=== PATIENT | male | born 1975 | race Caucasian/White ===

== ENCOUNTER 2018-12-11 23:11 | Inpatient (IN) ==
[2018-12-11] MEDS ORDERED: Sod Chloride 0.9% Inj 1,000 ML IV.SIG ONE (23:39)
[2018-12-11] MEDS ORDERED: Morphine Inj 4 MG/ML Vial IV.PUSH ONE (23:39)
--- NOTE | 2018-12-11 23:43 | ED ---
HPI General Chief Complaint: Abdominal Pain Stated Complaint: abd pain Time Seen by Provider: 12/11/18 23:39 Source: patient and EMS Mode of arrival: EMS Limitations: no limitations History of Present Illness HPI narrative: 43-year-old male patient with history of lap band surgery, hernia surgery, presents to the ER today for 3 days history of epigastric abdominal pain which she rates currently an 8 out of 10. He has been nauseous and vomiting. He denies any fevers, diarrhea, or any other symptoms. He states that any movement makes the pain worse. Modifying Factors: None Associated Signs & Symptoms: Epigastric abdominal pain Risk Factors: Lap band surgery, hernia surgeries Related Data Allergies Allergy/AdvReac Type Severity Reaction Status Date / Time No Known Allergies Allergy Verified 12/11/18 23:37 Review of Systems ROS: all other systems reviewed are negative PMFSH History History Provided By: Patient Medical History Medical History History of asthma (Acute) Hx of sleep apnea (Acute) Surgical History Surgical History History of hernia surgery (Acute) LAP-BAND surgery status (Acute) Social History Social History Substance History: No History of Abuse Second Hand Smoke Exposure: No Smoking Status: Never smoker Tobacco Type: Cigarettes How Often Do You Have a Drink Containing Alcohol: Monthly or less Recent Travel in [facility] within the Last 8 Weeks: No Recent Out of Country Travel within the Last 8 Weeks: No Exam Narrative Exam Narrative: GENERAL: Well-developed male H male patient currently in moderate distress. Awake and oriented x3. SKIN: Focused skin assessment warm/dry. HEAD: Atraumatic. Normocephalic. EYES: Pupils equal and round. No scleral icterus. No injection or drainage. ENT: No nasal bleeding or discharge. Mucous membranes pink and moist. NECK: Trachea midline. No JVD. CARDIOVASCULAR: Regular rate and rhythm. No murmur appreciated. RESPIRATORY: No accessory muscle use. Clear to auscultation. Breath sounds equal bilaterally. GASTROINTESTINAL: Abdomen soft,Epigastric tenderness without guarding or rebound , and more diffuse abdominal tenderness throughout, nondistended. Hepatic and splenic margins not palpable. MUSCULOSKELETAL: No obvious deformities. No clubbing. No cyanosis. No edema. NEUROLOGICAL: Awake and alert. No obvious cranial nerve deficits. Motor grossly within normal limits. Normal speech. PSYCHIATRIC: Appropriate mood and affect; insight and judgment normal. Course Initial Documented Vital Signs Temperature 98.1 F 12/11/18 23:25 Pulse Rate 78 12/11/18 23:25 Respiratory Rate 18 12/11/18 23:25 Blood Pressure 134/70 12/11/18 23:25 Pulse Oximetry 99 12/11/18 23:25 Last Documented Vital Signs Temperature 98.1 F 12/11/18 23:25 Pulse Rate 92 H 12/12/18 01:30 Respiratory Rate 20 12/12/18 01:30 Blood Pressure 142/74 H 12/12/18 01:30 Pulse Oximetry 99 12/12/18 01:30 Medical Decision Making MDM Narrative Medical decision making narrative: Patient has significant dehydration, white count is elevated, LFTs are up, and his lipase is very elevated concerning for pancreatitis. CAT scan is showing signs of ductal dilatation as well as acute pancreatitis, gallstones seen, concerning for a possible retained gallstone and gallstone pancreatitis. Patient had been given IV fluids, nausea medications, pain medications in the ER. At this point, plan would be to admit the patient for further treatment. Case is discussed with PA for Dr. Sandoval for admission. Medical Screen Exam Complete: Yes Emergency Medical Condition: Yes Differential Diagnosis Differential Diagnosis: LAP-BAND malplacement versus gastritis versus gastroenteritis versus pancreatitis versus other acute intra-abdominal processes Lab Data Lab results reviewed: Yes I reviewed the patient's lab results. Result diagrams: 12/11/18 23:50 12/11/18 23:50 Lab Results 12/11/18 12/11/18 Range/Units 23:50 23:50 CBC w Diff Auto diff final WBC 15.3 H (4.0-11.0) th/mm3 RBC 6.41 H (4.50-5.90) mil/mm3 Hgb 17.6 H (13.0-17.0) gm/dL Hct 53.4 H (39.0-51.0) % MCV 83.3 (80.0-100.0) fL MCH 27.5 (27.0-34.0) pg MCHC 33.0 (32.0-36.0) % RDW 14.7 (11.6-17.2) % Plt Count 211 (150-450) th/mm3 MPV 10.8 (7.0-11.0) fL Neut % (Auto) 89.3 H (16.0-70.0) % Lymph % (Auto) 4.7 L (9.0-44.0) % Winston % (Auto) 4.2 (0.0-8.0) % Eos % (Auto) 0.0 (0.0-4.0) % Baso % (Auto) 1.8 (0.0-2.0) % Neut # (Auto) 13.7 H (1.8-7.7) th/mm3 Lymph # (Auto) 0.7 L (1.0-4.8) th/mm3 Winston # (Auto) 0.6 (0.0-0.9) th/mm3 Eos # (Auto) 0.0 (0.0-0.4) th/mm3 Baso # (Auto) 0.3 H (0.0-0.2) th/mm3 WBC Differential . Differential Comment . Sodium 140 (136-145) meq/L Potassium 3.7 (3.5-5.1) meq/L Chloride 104 (98-107) meq/L Carbon Dioxide 24.2 (21.0-32.0) meq/L Anion Gap 12 (5-15) meq/L BUN 13 (7-18) mg/dL Creatinine 1.50 H (0.60-1.30) mg/dL Estimated GFR 51 L (>89) mL/min Random Glucose 201 H (74-106) mg/dL Calcium 9.9 (8.5-10.1) mg/dL Magnesium 2.2 (1.5-2.5) mg/dL Total Bilirubin 4.6 H (0.2-1.0) mg/dL AST 194 H (15-37) U/L ALT 528 H (12-78) U/L Alkaline Phosphatase 293 H (45-117) U/L Total Protein 8.9 H (6.4-8.2) g/dL Albumin 4.4 (3.4-5.0) g/dL Lipase 00653 H (73-393) U/L Imaging Data Attestation: I personally reviewed and interpreted this imaging study as follows : Radiologist's impression: Abdomen/Pelvis CT 12/12/18 00:42 CONCLUSION: 1. Gallstones. 2. Mild intra and extra hepatic biliary ductal dilatation 3. Acute pancreatitis Discharge Plan Discharge Disposition Patient Disposition: ED Admit(ED Internal Use Only) Discharge Condition Condition: Stable Discharge Order Discharge Orders: ED Use Only Admit Order (Routine); Ordered 12/12/18 Ordered By: Brandon Silveira Discharge Details Anticipated Discharge Date: 12/12/18 Diagnosis: Pancreatitis Physicians Team ED Provider: Brandon Silveira Primary Care Provider: Josh Graham Discharge Interventions Interventions: Vital Signs Last Done: 12/12/18 01:30 Status ED Status: With Doctor
[2018-12-12 00:12] LABS: Baso # (Auto) 0.3 th/mm3 (0.0-0.2); Baso % (Auto) 1.8 % (0.0-2.0); Hematocrit 53.4 % (39.0-51.0); Hemoglobin 17.6 gm/dL (13.0-17.0); Lymph # (Auto) 0.7 th/mm3 (1.0-4.8); Lymph % (Auto) 4.7 % (9.0-44.0); Mean Corpuscular Hemoglobin 27.5 pg (27.0-34.0); Mean Corpuscular Volume 83.3 fL (80.0-100.0); Mean Platelet Volume 10.8 fL (7.0-11.0); Mono # (Auto) 0.6 th/mm3 (0.0-0.9); Mono % (Auto) 4.2 % (0.0-8.0); Neut # (Auto) 13.7 th/mm3 (1.8-7.7); Neut % (Auto) 89.3 % (16.0-70.0); Platelet Count 211 th/mm3 (150-450); Red Blood Count 6.41 mil/mm3 (4.50-5.90); Red Cell Distribution Width 14.7 % (11.6-17.2); White Blood Count 15.3 th/mm3 (4.0-11.0)
[2018-12-12 00:13] LABS: Chloride 104 meq/L (98-107); Potassium 3.7 meq/L (3.5-5.1); Sodium 140 meq/L (136-145)
[2018-12-12 00:18] LABS: Albumin 4.4 g/dL (3.4-5.0); Anion Gap 12 meq/L (5-15); Blood Urea Nitrogen 13 mg/dL (7-18); Calcium 9.9 mg/dL (8.5-10.1); Carbon Dioxide 24.2 meq/L (21.0-32.0); Glucose,Random 201 mg/dL (74-106); Magnesium 2.2 mg/dL (1.5-2.5)
[2018-12-12 00:19] LABS: Alanine Aminotransferase 528 U/L (12-78)
[2018-12-12 00:20] LABS: Aspartate Aminotransferase 194 U/L (15-37); Glomerular Filtration Rate 51 mL/min (>89)
[2018-12-12 00:21] LABS: Total Protein 8.9 g/dL (6.4-8.2)
[2018-12-12 00:22] LABS: Alkaline Phosphatase 293 U/L (45-117); Lipase 18356 U/L (73-393)
--- NOTE | 2018-12-12 01:06 | CT ---
EXAM DATE: 12/12/2018 12:49 AM EST AGE/SEX: 43 years / Male INDICATIONS: Abdominal pain. CLINICAL DATA: This is the patient's initial encounter. Patient reports that signs and symptoms have been present for 1 day and indicates a pain score of 9/10. MEDICAL/SURGICAL HISTORY: . Asthma. Sleep apnea. . Hernia repair. Lap-band. ORAL CONTRAST: No oral contrast ingested. RADIATION DOSE: 22.98 CTDI (mGy) COMPARISON: No prior exams available for comparison. TECHNIQUE: Multiple contiguous axial images were obtained through the abdomen and pelvis following b olus infusion of 96 ml Omnipaque 350 (iohexol) nonionic water-soluble contrast as a single exam dos e. No oral contrast ingested. Using automated exposure control and adjustment of the mA and/or kV ac cording to patient size, radiation dose was kept as low as reasonably achievable to obtain optimal di agnostic quality images. DICOM format image data is available electronically for review and comparis on. FINDINGS: Lower Lungs: The visualized lower lungs are clear. Liver: There is mild intra and extra hepatic biliary ductal dilatation with common duct diameter appr oaching 12 mm. There is no evidence of focal liver mass. There are stones present within a contracted gallbladder. Spleen: Homogeneous density without enlargement. Pancreas: Moderate peripancreatic inflammatory change consistent with acute pancreatitis. Inflammato ry changes extend inferiorly into the upper pelvis within the right anterior pararenal space. Kidneys: Normal in size and shape. No evidence of mass or hydronephrosis. Adrenal Glands: Unremarkable. Aorta: The aorta and proximal iliac vessels are grossly unremarkable without aneurysmal dilation. Bowel/Mesentery: Lap band implement is present. The bowel loops are grossly unremarkable. The cecum a nd sigmoid colon have a normal configuration. Abdominal Wall: Intact. Retroperitoneum: No evidence of adenopathy in the retrocrural, para-aortic, or deep pelvic regions. Circumaortic renal vein noted. Bladder: Contours are smooth. Reproductive Organs: No abnormal masses or calcifications seen. Inguinal: The inguinal region is unremarkable without evidence of adenopathy. Bony Structures: Unremarkable. CONCLUSION: 1. Gallstones. 2. Mild intra and extra hepatic biliary ductal dilatation 3. Acute pancreatitis Electronically signed by: Julio Benson MD Board Certified Radiologist 12/12/2018 1:05 AM EST
[2018-12-12] MEDS ORDERED: Acetaminophen 325 MG Tablet PO PRN (01:42)
[2018-12-12] MEDS ORDERED: Sod Chloride 0.9% Inj 1,000 ML IV.SIG SCH (01:45)
[2018-12-12] MEDS: Morphine Inj 4 MG/ML Vial IV.PUSH PRN ×2 (01:52→07:50)
[2018-12-12] MEDS: Sod Chloride 0.9% Inj 1,000 ML IV.CONT SCH ×2 (03:11→12:48)
[2018-12-12 05:18] LABS: Bilirubin,Urine Moderate (Negative); Clarity,Urine Clear (Clear); Glucose,Urine (UA) 100 mg/dL (Negative); Leukocyte Esterase,Urine Negative (Negative); Nitrite,Urine Negative (Negative)
[2018-12-12 05:31] LABS: Color,Urine Amber (Yellw/Straw); Ictotest,Urine Positive (Negative)
[2018-12-12 05:32] LABS: RBC,Urine 0-3 /hpf (0-3); Squamous Epithelial Cell,Urine 0-5 /hpf (0-5); WBC,Urine 0-5 /hpf (0-5)
[2018-12-12 09:01] LABS: Baso # (Auto) 0.7 th/mm3 (0.0-0.2); Baso % (Auto) 3.7 % (0.0-2.0); Hematocrit 49.1 % (39.0-51.0); Hemoglobin 16.6 gm/dL (13.0-17.0); Lymph # (Auto) 0.7 th/mm3 (1.0-4.8); Lymph % (Auto) 3.8 % (9.0-44.0); Mean Corpuscular HGB Conc 33.9 % (32.0-36.0); Mean Corpuscular Hemoglobin 28.4 pg (27.0-34.0); Mean Corpuscular Volume 83.8 fL (80.0-100.0); Mean Platelet Volume 10.3 fL (7.0-11.0); Mono # (Auto) 0.8 th/mm3 (0.0-0.9); Mono % (Auto) 4.4 % (0.0-8.0); Neut # (Auto) 16.9 th/mm3 (1.8-7.7); Neut % (Auto) 88.1 % (16.0-70.0); Platelet Count 193 th/mm3 (150-450); Red Blood Count 5.86 mil/mm3 (4.50-5.90); Red Cell Distribution Width 15.1 % (11.6-17.2); White Blood Count 19.1 th/mm3 (4.0-11.0)
[2018-12-12 09:11] LABS: Chloride 109 meq/L (98-107); Potassium 3.9 meq/L (3.5-5.1); Sodium 142 meq/L (136-145)
[2018-12-12 09:40] LABS: Alanine Aminotransferase 462 U/L (12-78); Albumin 3.6 g/dL (3.4-5.0); Alkaline Phosphatase 245 U/L (45-117); Anion Gap 7 meq/L (5-15); Aspartate Aminotransferase 217 U/L (15-37); Blood Urea Nitrogen 13 mg/dL (7-18); Calcium 8.5 mg/dL (8.5-10.1); Carbon Dioxide 26.5 meq/L (21.0-32.0); Glomerular Filtration Rate 55 mL/min (>89); Glucose,Random 165 mg/dL (74-106); Total Protein 7.6 g/dL (6.4-8.2)
[2018-12-12 09:51] LABS: Lipase 11094 U/L (73-393)
[2018-12-12] MEDS ORDERED: HYDROmorphone PF Inj 0.5 MG/0.5 ML Syringe IV.PUSH PRN (09:53)
[2018-12-12] MEDS: HYDROmorphone PF Inj 2 MG/ML Vial IV.PUSH PRN ×3 (10:11→20:35)
--- NOTE | 2018-12-12 11:51 | MR ---
EXAM DATE: 12/12/2018 11:39 AM EST AGE/SEX: 43 years / Male INDICATIONS: Abdominal pain. CLINICAL DATA: This is the patient's subsequent encounter. Patient reports that signs and symptoms h ave been present for 2 days and indicates a pain score of 3/10. MEDICAL/SURGICAL HISTORY: Asthma. . Hernia, lap band COMPARISON: [facility], CT ABDOMEN & PELVIS W CONTRAST, 12/12/2018. . TECHNIQUE: Multiplanar, multisequence images of the abdomen were obtained without contrast including dedicated cholangiographic images. FINDINGS: Liver: The liver is homogeneous and normal in signal intensity with no focal defects. Intrahepatic Bile Ducts: There is mild dilation of the intrahepatic biliary ducts. Common Bile Duct: The common bile duct is enlarged measuring 12 mm in size. The common bile duct fol lowed all the way to the ampulla without evidence of filling defect. Gallbladder: Absent signal within the lumen of the fundus of the gallbladder correlates with areas o f calcification seen on CT suggesting multiple gallstones. The cystic duct is identified and has a no rmal spiral appearance without filling defects. Pancreas: The pancreatic duct is normal in size of the liver down to the ampulla. CONCLUSION: 1. Large gallstones. 2. Moderate dilation of the common bile duct and mild dilation of the intrahepatic biliary system wi thout intraluminal filling defects. 3. Mild amount of ascites adjacent to the tail of the pancreas and about the spleen 4. May consider performing hepatobiliary tract scan to evaluate patency of the cystic duct and to ev aluate for evidence of functional biliary obstruction.. Electronically signed by: Daryl Gregorio MD Board Certified Radiologist 12/12/2018 11:50 AM EST
--- NOTE | 2018-12-12 11:59 | P.HPIM ---
History of Present Illness Primary Care Physician: Johs Graham MD Chief Complaint: Abdominal pain History of Present Illness: 43-year-old male with history of asthma, sleep apnea who presented to hospital for evaluation of abdominal pain. Patient states that he has been experiencing abdominal pain for at least 2 weeks now. He indicates that it was a mild pain throughout his abdomen which over the last 2 days has progressively gotten worse to where it got up to 8/10 on a pain scale. Patient indicates that the pain was worse at work which she related to stress. As the pain was getting worse he came home from work yesterday and when she got home he had onset of nausea and vomiting. He states that he only vomited up liquids because over the last 24 hours he had only been drinking fluids. Last solid meal was on Tuesday. Patient denies any hematemesis, diarrhea, constipation, hematochezia. Patient denies any alcohol use, previous history of pancreatitis. Patient had workup done and found to have significant hyperbilirubinemia, liver enzyme elevation, pancreatic enzyme elevation. It was recommended by ER physician the patient be admitted for gallstone pancreatitis. Inpatient Certification Inpatient Certification: I certify that the inpatient services were ordered in accordance with Medicare regulations governing the order. This includes certification that hospital inpatient services are reasonable and necessary and in the case of services not specified as inpatient-only under 42 CFR 419.22(n), that they are appropriately provided as inpatient services in accordance to with the 2-midnight benchmark under 43 CFR 412.3(e) Estimated Total Length of Stay (Days): 2 Plans for Post Hospital Care: Home Review of Systems Review of Systems: all other systems reviewed are negative Gastrointestinal: Reports abdominal pain, Reports nausea and Reports vomiting [facility] Medical History Medical History History of asthma (Acute) Hx of sleep apnea (Acute) Surgical History Surgical History History of hernia surgery (Acute) LAP-BAND surgery status (Acute) Family History Family History Father History of prostate cancer Social History Social History Substance History: No History of Abuse Second Hand Smoke Exposure: No Smoking Status: Never smoker Tobacco Type: Cigarettes How Often Do You Have a Drink Containing Alcohol: 2 to 4 times a month Recent Travel in [facility] within the Last 8 Weeks: No Recent Out of Country Travel within the Last 8 Weeks: No Immunization History Tetanus Immunization: >5 Years Hx Influenza Vaccine This Season: No Medications and Allergies Allergies Allergy/AdvReac Type Severity Reaction Status Date / Time No Known Allergies Allergy Verified 12/11/18 23:37 Active Medications: Active Medications Acetaminophen (Tylenol) 650 mg PO Q4H PRN PRN Reason: Temp > 100.4 Hydromorphone HCl (Dilaudid Pf Inj) 1 mg IV.PUSH Q4H PRN PRN Reason: Pain 7 to 10 Last Admin: 12/12/18 10:11 Dose: 1 mg Hydromorphone HCl (Dilaudid Pf Inj) 0.5 mg IV.PUSH Q4H PRN PRN Reason: Pain 3 to 6 Sodium Chloride (Ns Inj) 1,000 mls @ 100 mls/hr IV.CONT .Q10H LEANA Last Admin: 12/12/18 03:11 Dose: 100 mls/hr Ondansetron HCl (Zofran Inj) 4 mg IV.PUSH Q6H PRN PRN Reason: NAUSEA OR VOMITING Last Admin: 12/12/18 03:10 Dose: 4 mg Sodium Chloride (Ns Flush) 2 ml IV.FLUSH BID LEANA Sodium Chloride (Ns Flush) 2 ml IV.FLUSH PRN PRN PRN Reason: FLUSH AFTER USING IV ACCESS Physical Exam Vital signs: Vital Signs 12/11/18 23:25 12/12/18 00:30 12/12/18 01:30 Temperature 98.1 F Pulse Rate 78 92 H Respiratory Rate 18 18 20 Blood Pressure 134/70 142/74 H Pulse Oximetry 99 99 12/12/18 02:15 12/12/18 03:49 12/12/18 07:52 Temperature 98.1 F Pulse Rate 76 Respiratory Rate 16 18 18 Blood Pressure 137/74 Pulse Oximetry 93 L 12/12/18 08:00 12/12/18 08:19 Temperature 97.9 F Pulse Rate 79 79 Respiratory Rate 20 Blood Pressure 122/82 Pulse Oximetry 95 Intake & Output 12/11/18 12/12/18 12/12/18 18:59 06:59 18:59 Intake Total 1999 Balance 1999 Weight 117.8 kg Intake: IV 1999 NS Inj 1,000 ML @ 1000 mls/hr 1999 IV.SIG BOLUS LEANA Rx#:[id number] Other: # Voids 1 Date of Last Bowel Movement 12/11/18 Weight On Admission 118 kg Narrative: GENERAL: Well-developed, well-nourished, in no acute distress. alert and orientated HEENT: Head is normocephalic without any lesions or masses noted. Facial features are symmetric. Eyes: Pupils equal round reactive to light. Extraocular muscles are intact. Conjunctivae were clear. Oropharyngeal: Pharynx without any erythema edema. Tongue is midline without deviation. Buccal mucosa is moist without any masses or lesions NECK: Supple without any masses. Trachea midline no deviation. No JVD, no bruits are appreciated CARDIAC: Regular rhythm, regular rate. S1/S2 are heard. No murmurs gallops or rubs. LUNGS: Clear to auscultation bilaterally. No wheeze, rhonchi or rales. No use of accessory muscles on inspiration or expiration. ABDOMEN: Soft, diffuse abdominal tenderness. Patient does have a positive Medrano sign. However he also elicits same response when doing the left side of his abdomen. Nondistended. Bowel sounds heard in all 4 quadrants. No organomegaly or masses. Negative rebound, negative guarding EXTREMITIES: No edema, pulses are equal bilaterally. No cyanosis or clubbing NEUROLOGY: Mood and affect appear appropriate. Cranial nerves II through XII grossly intact. Muscle strength 5/5 in upper and lower extremities bilaterally. Deep tendon reflexes are 2+ in upper and lower extremities bilaterally. Results Labs CBC & Chem 7: 12/12/18 08:48 12/12/18 08:48 Imaging Impressions Cholangiopancreatography MRI 12/12/18 00:00 CONCLUSION: 1. Large gallstones. 2. Moderate dilation of the common bile duct and mild dilation of the intrahepatic biliary system without intraluminal filling defects. 3. Mild amount of ascites adjacent to the tail of the pancreas and about the spleen 4. May consider performing hepatobiliary tract scan to evaluate patency of the cystic duct and to evaluate for evidence of functional biliary obstruction.. Abdomen/Pelvis CT 12/12/18 00:42 CONCLUSION: 1. Gallstones. 2. Mild intra and extra hepatic biliary ductal dilatation 3. Acute pancreatitis Caprini VTE Risk Assessment Caprini VTE Risk Assessment: No/Low Risk (score <= 1) Caprini Risk Assessment Model: Point Value = 1 Point Value = 2 Point Value = 3 Point Value = 5 Age 41-60 Minor surgery BMI > 25 kg/m2 Swollen legs Varicose veins or History of unexplained or recurrent spontaneous Oral contraceptives or hormone replacement Sepsis (< 1 month) Serious lung disease, including pneumonia (< 1 month) Abnormal pulmonary function Acute myocardial infarction Congestive heart failure (< 1 month) History of inflammatory bowel disease Medical patient at bed rest Age 61-74 Arthroscopic surgery Major open surgery (> 45 min) Laparoscopic surgery (> 45 min) Malignancy Confined to bed (> 72 hours) Immobilizing plaster cast Central venous access Age >= 75 History of VTE Family history of VTE Factor V Leiden Prothrombin [id number] Lupus anticoagulant Anticardiolipin antibodies Elevated serum homocysteine Heparin-induced thrombocytopenia Other congenital or acquired thrombophilia Stroke (< 1 month) Elective arthroplasty Hip, pelvis, or leg fracture Acute spinal cord injury (< 1 month) Prophylaxis Regimen: Total Risk Factor Score Risk Level Prophylaxis Regimen 0-1 Low Early ambulation 2 Moderate Order ONE of the following: *Sequential Compression Device (SCD) *Heparin 5000 units SQ BID 3-4 Higher Order ONE of the following medications: *Heparin 5000 units SQ TID *Enoxaparin/Lovenox 40 mg SQ daily (WT < 150 kg, CrCl > 30 mL/min) *Enoxaparin/Lovenox 30 mg SQ daily (WT < 150 kg, CrCl > 10-29 mL/min) *Enoxaparin/Lovenox 30 mg SQ BID (WT < 150 kg, CrCl > 30 mL/min) AND/OR *Sequential Compression Device (SCD) 5 or more Highest Order ONE of the following medications: *Heparin 5000 units SQ TID (Preferred with Epidurals) *Enoxaparin/Lovenox 40 mg SQ daily (WT < 150 kg, CrCl > 30 mL/min) *Enoxaparin/Lovenox 30 mg SQ daily (WT < 150 kg, CrCl > 10-29 mL/min) *Enoxaparin/Lovenox 30 mg SQ BID (WT < 150 kg, CrCl > 30 mL/min) AND *Sequential Compression Device (SCD) Assessment and Plan Plan Sepsis Patient met criteria on admission with leukocytosis, tachycardia, pancreatitis Obtain blood cultures Leukocytosis appears to be worsening, possible reactive versus infective Start Zosyn Abdominal pain with abnormal findings of elevated liver enzymes, hyperbilirubinemia, elevated pancreatic enzyme CT of the abdomen indicating gallstones, mild intrahepatic ductal dilatation, acute pancreatitis MRCP and indicating large gallstones, Moderate dilation of the common bile duct and mild dilation of the intrahepatic biliary system without intraluminal filling defects., mild amount of ascites adjacent to the tail of the pancreas and about the spleen, may consider performing hepatobiliary tract scan to evaluate patency of the cystic duct and to evaluate for evidence of functional biliary obstruction. Obtain HIDA scan Maintain n.p.o. status Continue pain control Continue IV fluid Continue monitor liver enzymes Obtain triglyceride level Acute kidney injury Likely secondary to not eating and drinking, dehydration, nausea vomiting Continue IV fluids Monitor renal function Hyperglycemia Obtain hemoglobin A1c DVT prevention Sequential compression devices, early ambulation Avoid chemical prophylaxis secondary to possible impending procedure Discussed Condition With: Patient, nursing staff, Dr. Lockett H&P: Quality VTE Deep Vein Thrombosis/Pulmonary Embolism Present on Admission: No
[2018-12-12] MEDS ORDERED: SODIUM CHLOR 0.9% IV.SIG ONE ×2 (12:00→18:25)
[2018-12-12] MEDS ORDERED: SINCALIDE IV.SIG ONE ×2 (12:00→18:25)
[2018-12-12] MEDS: Piperacil/Tazo 3.375 GM Premix 3.375 GM/50 ML PIGGYBACK IV.SIG SCH ×2 (16:25→20:34)
--- NOTE | 2018-12-12 16:29 | NM ---
EXAM DATE: 12/12/2018 4:23 PM EST AGE/SEX: 43 years / Male INDICATIONS: Abdominal pain with nausea for two weeks. CLINICAL DATA: This is the patient's initial encounter. Patient reports that signs and symptoms have been present for 2 weeks and indicates a pain score of 8/10. MEDICAL/SURGICAL HISTORY: Asthma. Inguinal hernia repair. COMPARISON: [facility], CT ABDOMEN & PELVIS W CONTRAST, 12/12/2018. . No external comparison. DOSE: 4.3 mCi Tc-99m mebrofenin i.v. TECHNIQUE: Following the intravenous administration of radiotracer, dynamic sequential images were pe rformed with continuous acquisition. Time-activity curves were generated. FINDINGS: Hepatic Kinetics: There is slightly delayed parenchymal uptake in the liver with clearance of blood pool at 20 minutes (normal is less than 5 minutes) the amount of activity in the hepatic parenchyma s tays relatively stable for the remainder of the 2 hours. Biliary Clearance: No significant excretion of activity into the small bowel or extrahepatic biliary system. Gallbladder: Not visualized, since there is no extrahepatic excretion of radiotracer, the study is no ndiagnostic for evaluation of the gallbladder. CONCLUSION: 1. Delayed uptake and no significant excretion of radiotracer from the hepatic parenchyma has differ ential considerations of either severe hepatocellular dysfunction or biliary obstruction. There is di lation of the intra and extrahepatic biliary system on CT and MRCP, making biliary obstruction more l ikely. 2. Cystic duct patency cannot be assessed due to the lack of excretion of radiotracer. Electronically signed by: Daryl Gregorio MD Board Certified Radiologist 12/12/2018 4:28 PM EST
[2018-12-12 16:39] LABS: Hemoglobin A1c 5.3 % (4.3-6.0)
--- NOTE | 2018-12-12 19:20 | MB ---
cc: Nancy Rhodes MD DATE: 12/12/2018 REFERRING PHYSICIAN: DOMENICO Peter PRIMARY CARE PHYSICIAN: Josh Graham MD REASON FOR CONSULTATION: Abdominal pain, pancreatitis, elevated liver enzymes. HISTORY OF PRESENT ILLNESS: Mr. Wilcox is a 43-year-old gentleman with multiple medical problems who came to the emergency room with complaints of abdominal pain going on for approximately 2 weeks. The patient stated the pain got worse for the last 2 days and was mostly in the upper abdomen. He denies any melena, hematemesis or hematochezia. He also vomited up some liquids over the last 24 hours when trying to drink liquids. The patient denies any previous history of pancreatitis, gallstones or any other GI pathology. He had a Lap-Band done more than 10 years ago up in [place]. He is unaware of the amount of fluid that was placed in the band. He denies any alcohol use. PAST MEDICAL HISTORY: Asthma, sleep apnea, obesity. PAST SURGICAL HISTORY: Lap-Band, hernia surgery. FAMILY HISTORY: Prostate cancer. No family history of colon cancer or any other GI pathology. SOCIAL HISTORY: Denies any drug use. Drinks alcohol 2-4 times a month. Smokes cigarettes. ALLERGIES: NO KNOWN ALLERGIES. MEDICATIONS: 1. Acetaminophen. 2. Dilaudid. 3. Zofran. REVIEW OF SYSTEMS: CONSTITUTIONAL: He denies any fever, chills, weight loss or weight gain. ENT: No alteration of baseline hearing or visual activity. PULMONARY: Denies any chest pain or shortness of breath. GASTROINTESTINAL: As above. GENITOURINARY: Denies dysuria or hematuria. HEMATOLOGIC: No history of anemia or bleeding disorder. SKIN: No alteration of baseline skin lesion. NEUROLOGIC: No history of TIA or CVA kind of symptoms. PHYSICAL EXAMINATION: GENERAL: The patient is sitting comfortably in bed, in no acute distress. VITAL SIGNS: Temperature 99, blood pressure 133/83. HEENT: PERRLA. Mild jaundice. NECK: Without JVD. No lymphadenopathy. CHEST: Clear to auscultation and palpation. CARDIOVASCULAR: S1, S2. No murmur. ABDOMEN: Obese. Subcutaneous device in the epigastrium. CENTRAL NERVOUS SYSTEM: Awake, alert, oriented x 3. No focal signs identified. EXTREMITIES: No pedal edema. LABORATORY DATA: Suggestive of a white count of 15.3, hemoglobin 17.6, platelets 211. Currently, white count is 19.1, hemoglobin 16.6, platelets 193. His chemistries are suggestive of a BUN of 13; creatinine 1.4; glucose 165; total bilirubin 4.6, currently 7; AST 194, currently 217; ALT 428, currently 462; alkaline phosphatase 293, currently 245. Lipase 18,356, currently 11,093. The patient also has had multiple imaging since his admission. He had a CT abdomen and pelvis which showed gallstones, mild intra and extrahepatic biliary ductal dilatation, acute pancreatitis. Also, the patient had a HIDA scan which showed delayed uptake, no significant excretion of radiotracer from hepatic parenchyma. Differential consideration would be severe hepatocellular dysfunction or biliary obstruction. There is dilatation of the intra and extrahepatic biliary system. Cystic duct patency cannot be assessed due to lack of excretion of the radiotracer. A delayed HIDA scan is scheduled for tomorrow morning. The patient also had an MRCP which showed large gallstones, moderate dilatation of the common bile duct, mild dilatation of the intrahepatic biliary system without intraluminal filling defects, mild amount of ascites. May consider performing hepatobiliary scan. IMPRESSION: Mr. Wilcox is a very pleasant 43-year-old gentleman admitted to the hospital with pancreatitis, most likely secondary to gallstones. Magnetic resonance cholangiopancreatography is negative for any biliary pathology at this time. Gallstones are the possible etiology of his pancreatitis. Elevated liver enzymes, bilirubin increasing, possible passed gallstone, possible increased liver enzymes due to pancreatitis, Status post Lap-Band. RECOMMENDATIONS: Clear liquid diet. Monitor LFTs closely. Direct and indirect bilirubin. Transfer to the [facility] for possible ERCP, EUS, consultation with bariatric surgery. The patient may need deflation of his Lap-Band prior to any endoscopic procedure. Also, he may need a cholecystectomy. Supportive care. Risks and benefits of ERCP and EUS discussed with the patient. IV antibiotics. Further recommendations will depend on the patient's clinical status and the above results. Discussed with the medical team and the patient. MD RUPERT Garcia/catrachito , 06:20 PM , 06:37 PM MATTHIEU
[2018-12-13] MEDS: HYDROmorphone PF Inj 2 MG/ML Vial IV.PUSH PRN ×5 (00:55→23:10)
[2018-12-13] MEDS: Sod Chloride 0.9% Inj 1,000 ML IV.CONT SCH ×3 (00:56→20:18)
[2018-12-13] MEDS: Piperacil/Tazo 3.375 GM Premix 3.375 GM/50 ML PIGGYBACK IV.SIG SCH ×4 (02:22→22:07)
[2018-12-13 06:49] LABS: Chloride 105 meq/L (98-107); Potassium 3.6 meq/L (3.5-5.1); Sodium 139 meq/L (136-145)
[2018-12-13 06:53] LABS: Baso % (Auto) 0.1 % (0.0-2.0); Eos % (Auto) 0.1 % (0.0-4.0); Hematocrit 52.8 % (39.0-51.0); Hemoglobin 17.6 gm/dL (13.0-17.0); Lymph # (Auto) 1.2 th/mm3 (1.0-4.8); Mean Corpuscular HGB Conc 33.2 % (32.0-36.0); Mean Corpuscular Hemoglobin 28.2 pg (27.0-34.0); Mean Corpuscular Volume 84.7 fL (80.0-100.0); Mean Platelet Volume 11.4 fL (7.0-11.0); Mono # (Auto) 0.9 th/mm3 (0.0-0.9); Mono % (Auto) 3.8 % (0.0-8.0); Neut # (Auto) 21.6 th/mm3 (1.8-7.7); Platelet Count 214 th/mm3 (150-450); Red Blood Count 6.23 mil/mm3 (4.50-5.90); Red Cell Distribution Width 15.6 % (11.6-17.2); White Blood Count 23.7 th/mm3 (4.0-11.0)
[2018-12-13 06:56] LABS: Calcium 8.1 mg/dL (8.5-10.1)
[2018-12-13 06:57] LABS: Albumin 3.1 g/dL (3.4-5.0); Anion Gap 8 meq/L (5-15); Blood Urea Nitrogen 17 mg/dL (7-18); Carbon Dioxide 25.6 meq/L (21.0-32.0); Glucose,Random 131 mg/dL (74-106)
[2018-12-13 07:00] LABS: Alanine Aminotransferase 366 U/L (12-78); Aspartate Aminotransferase 131 U/L (15-37); Glomerular Filtration Rate 55 mL/min (>89)
[2018-12-13 07:11] LABS: Alkaline Phosphatase 235 U/L (45-117); Lipase 3070 U/L (73-393); Total Protein 7.2 g/dL (6.4-8.2)
--- NOTE | 2018-12-13 07:44 | P.PNIM ---
Subjective Interval history: 43-year-old male who is seen examined today for follow-up on gallstone pancreatitis. Patient states that there is been no significant change in his condition. Still having abdominal discomfort. Plans for patient be transferred to the main for further intervention. Vital signs are stable. Patient remains afebrile. Physical Exam Vital signs: Vital Signs 12/12/18 07:52 12/12/18 08:00 12/12/18 08:19 Temperature 97.9 F Pulse Rate 79 79 Respiratory Rate 18 20 Blood Pressure 122/82 Pulse Oximetry 95 12/12/18 10:41 12/12/18 12:00 12/12/18 16:00 Temperature 99 F 98 F Pulse Rate 78 92 H Respiratory Rate 18 20 20 Blood Pressure 136/83 123/83 Pulse Oximetry 94 L 93 L 12/12/18 16:54 12/12/18 20:00 12/12/18 20:03 Temperature 96.8 F L Pulse Rate 91 H 90 Respiratory Rate 18 20 Blood Pressure 131/81 Pulse Oximetry 92 L 12/13/18 00:00 12/13/18 00:07 12/13/18 04:00 Temperature 96.5 F L 97.2 F L Pulse Rate 86 94 H 99 H Respiratory Rate 20 20 Blood Pressure 137/83 133/95 H Pulse Oximetry 94 L 92 L 12/13/18 04:09 12/13/18 07:32 Temperature 98.6 F Pulse Rate 99 H Respiratory Rate 20 Blood Pressure 148/91 H Pulse Oximetry 92 L Intake & Output 12/12/18 12/13/18 12/13/18 18:59 06:59 18:59 Intake Total 1100 / 1100 1100 / 1100 Balance 1100 / 1100 1100 / 1100 Weight 119.8 kg Intake: IV 1100 / 1100 1100 / 1100 NS Inj 1,000 ML @ 100 mls/hr IV 1000 / 1000 1000 / 1000 .CONT .Q10H LEANA Rx#:[id number] Zosyn 3.375 GM Premix 3.375 gm 100 / 100 100 / 100 In 50 ml @ 100 mls/hr IV.SIG Q6H LEANA Rx#:[id number] Oral 0 / 0 Other: # Voids 2 4 Date of Last Bowel Movement 12/11/18 # Bowel Movements 0 Narrative: GENERAL: Well-developed, well-nourished, in no acute distress. alert and orientated HEENT: Head is normocephalic without any lesions or masses noted. Facial features are symmetric. Eyes: Extraocular muscles are intact. Conjunctivae were clear. NECK: Supple without any masses. Trachea midline no deviation. No JVD, CARDIAC: Regular rhythm, regular rate. S1/S2 are heard. No murmurs gallops or rubs. LUNGS: Clear to auscultation bilaterally. No wheeze, rhonchi or rales. No use of accessory muscles on inspiration or expiration. ABDOMEN: Soft, mild diffuse tenderness noted throughout. Nondistended. Bowel sounds heard in all 4 quadrants. No organomegaly or masses. Negative rebound, negative guarding EXTREMITIES: No edema, pulses are equal bilaterally. No cyanosis or clubbing NEUROLOGY: Mood and affect appear appropriate. Cranial nerves II through XII grossly intact. Moving all extremities, speech is clear Results Labs CBC & Chem 7: 12/13/18 05:16 12/13/18 05:16 Imaging Imaging: Impressions Cholangiopancreatography MRI 12/12/18 00:00 CONCLUSION: 1. Large gallstones. 2. Moderate dilation of the common bile duct and mild dilation of the intrahepatic biliary system without intraluminal filling defects. 3. Mild amount of ascites adjacent to the tail of the pancreas and about the spleen 4. May consider performing hepatobiliary tract scan to evaluate patency of the cystic duct and to evaluate for evidence of functional biliary obstruction.. Hepatobiliary Scan Nuclear Medicine 12/12/18 00:00 CONCLUSION: 1. Delayed uptake and no significant excretion of radiotracer from the hepatic parenchyma has differential considerations of either severe hepatocellular dysfunction or biliary obstruction. There is dilation of the intra and extrahepatic biliary system on CT and MRCP, making biliary obstruction more likely. 2. Cystic duct patency cannot be assessed due to the lack of excretion of radiotracer. Assessment and Plan Plan Sepsis Patient met criteria on admission with leukocytosis, tachycardia, pancreatitis Blood cultures are pending Leukocytosis appears to be worsening, possible reactive versus infective Continue Zosyn Abdominal pain with abnormal findings of elevated liver enzymes, hyperbilirubinemia, elevated pancreatic enzyme CT of the abdomen indicating gallstones, mild intrahepatic ductal dilatation, acute pancreatitis MRCP and indicating large gallstones, Moderate dilation of the common bile duct and mild dilation of the intrahepatic biliary system without intraluminal filling defects., mild amount of ascites adjacent to the tail of the pancreas and about the spleen, may consider performing hepatobiliary tract scan to evaluate patency of the cystic duct and to evaluate for evidence of functional biliary obstruction. Awaiting final results of HIDA scan Maintain n.p.o. status Continue pain control Continue IV fluid Liver enzymes are trending down nicely Triglyceride level was 92 Yarn Mercerizer Operator Helper evaluated patient and recommend the patient be transferred to the main hospital for procedure Acute kidney injury Likely secondary to not eating and drinking, dehydration, nausea vomiting Continue IV fluids Monitor renal function Hyperglycemia Hemoglobin A1c 5.3 DVT prevention Sequential compression devices, early ambulation Avoid chemical prophylaxis secondary to possible impending procedure Progress Note: Quality VTE Deep Vein Thrombosis/Pulmonary Embolism Present on Admission: No
[2018-12-13 08:32] LABS: Activated Partial Thrombo Time 27.5 sec (23.4-31.7); INR 1.2 Ratio; Prothrombin Time 11.9 sec (9.8-11.6)
--- NOTE | 2018-12-13 10:40 | P.CONGS ---
[facility] Gen Surgery Consult Note Consult date: 12/13/18 Reason for consult: gallstones Requesting physician: Nancy Rhodes Narrative: This is a 43-year-old male with a past medical history of asthma, sleep apnea and a LAP-BAND procedure completed about 11 years ago. The patient came to the Emergency Room Tuesday evening with complaints of abdominal pain. He reports the pain has been going on for about 2 weeks but has intensified. The patient reports associated nausea and vomiting. The patient does reports some mild chills. A CT abdomen/pelvis was obtained which shows gallstones and a mild intra-and extrahepatic ductal dilatation with findings of acute pancreatitis. An MRCP was done which shows large gallstones with moderate dilatation of the common bile duct and mild dilatation of the intrahepatic biliary system. A HIDA scan shows delayed uptake and no signs of excretion of the radiotracer although cystic duct patency cannot be assessed at that time. His white blood cell count has been elevated. His liver enzymes have been elevated. He was admitted to [facility] and evaluated by Dr. Rhodes with GI. The patient was transferred to [facility] for ERCP this morning. A General Surgery consultation has been requested. Review of Systems All other systems reviewed negative except as stated in [facility] PMFSH - History History Provided By: Patient - Medical History Medical History: Medical History (Last Reviewed 12/13/18 @ 10:44 by ARIES Chapman) History of asthma Hx of sleep apnea - Surgical History Surgical History: Surgical History (Last Reviewed 12/15/18 @ 10:02 by ARIES Chapman) History of laparoscopy Status post orchiopexy LAP-BAND surgery status - Family History Family History: Family History Father History of prostate cancer - Tobacco History Second Hand Smoke Exposure: No Tobacco Use In Past 30 Days: No Smoking Status: Never smoker - Alcohol History How Often Do You Have a Drink Containing Alcohol: 2 to 4 times a month - Substance Use History Substance History: No History of Abuse - Travel History Recent Travel in the [place] Within the Last 8 Weeks: No Recent Travel Out of the Country Within the Last 8 Weeks: No - Immunization History Tetanus Immunization: >5 Years Hx Influenza Vaccine This Season: No Medications and Allergies Allergies Allergy/AdvReac Type Severity Reaction Status Date / Time No Known Allergies Allergy Verified 12/11/18 23:37 Home Medications Medication Instructions Recorded Confirmed Type albuterol sulfate 2 puff INHALATION Q6H PRN 12/13/18 12/13/18 History Active Medications: Active Medications Acetaminophen (Tylenol) 650 mg PO Q4H PRN PRN Reason: Temp > 100.4 Hydromorphone HCl (Dilaudid Pf Inj) 1 mg IV.PUSH Q3H PRN PRN Reason: Pain 1-10 Sodium Chloride (Ns Inj) 1,000 mls @ 100 mls/hr IV.CONT .Q10H [facility] Last Admin: 12/13/18 10:17 Dose: 100 mls/hr Piperacillin/Tazobactam/Dextrose (Zosyn 3.375 Gm Premix) 3.375 gm in 50 mls @ 100 mls/hr IV.SIG Q6H [facility] Last Infusion: 12/13/18 08:37 Dose: Infused Ondansetron HCl (Zofran Inj) 4 mg IV.PUSH Q6H PRN PRN Reason: NAUSEA OR VOMITING Last Admin: 12/13/18 04:39 Dose: 4 mg Sodium Chloride (Ns Flush) 2 ml IV.FLUSH BID [facility] Last Admin: 12/13/18 09:00 Dose: Not Given Sodium Chloride (Ns Flush) 2 ml IV.FLUSH PRN PRN PRN Reason: FLUSH AFTER USING IV ACCESS Exam Vital signs: Vital Signs 12/12/18 10:41 12/12/18 12:00 12/12/18 16:00 Temperature 99 F 98 F Pulse Rate 78 92 H Respiratory Rate 18 20 20 Blood Pressure 136/83 123/83 Pulse Oximetry 94 L 93 L 12/12/18 16:54 12/12/18 20:00 12/12/18 20:03 Temperature 96.8 F L Pulse Rate 91 H 90 Respiratory Rate 18 20 Blood Pressure 131/81 Pulse Oximetry 92 L 12/13/18 00:00 12/13/18 00:07 12/13/18 04:00 Temperature 96.5 F L 97.2 F L Pulse Rate 86 94 H 99 H Respiratory Rate 20 20 Blood Pressure 137/83 133/95 H Pulse Oximetry 94 L 92 L 12/13/18 04:09 12/13/18 07:32 Temperature 98.6 F Pulse Rate 99 H Respiratory Rate 20 Blood Pressure 148/91 H Pulse Oximetry 92 L Intake & Output 12/12/18 12/13/18 12/13/18 18:59 06:59 18:59 Intake Total 1100 / 1100 1100 / 1100 800 / 800 Balance 1100 / 1100 1100 / 1100 800 / 800 Weight 119.8 kg Intake: IV 1100 / 1100 1100 / 1100 800 / 800 NS Inj 1,000 ML @ 100 mls/hr IV 1000 / 1000 1000 / 1000 750 / 750 .CONT .Q10H [facility] Rx#:[id number] Zosyn 3.375 GM Premix 3.375 gm 100 / 100 100 / 100 50 / 50 In 50 ml @ 100 mls/hr IV.SIG Q6H [facility] Rx#:[id number] Oral 0 / 0 Other: # Voids 2 4 1 Date of Last Bowel Movement 12/11/18 # Bowel Movements 0 Narrative: GENERAL: Alert awake 43 year old male ambulating in the room. SKIN: Warm and dry. HEAD: Atraumatic. Normocephalic. EYES: Pupils equal and round. No scleral icterus. No injection or drainage. ENT: No nasal bleeding or discharge. Mucous membranes pink and moist. NECK: Trachea midline. CARDIOVASCULAR: Regular rate and rhythm. RESPIRATORY: No accessory muscle use. Clear to auscultation. Breath sounds equal bilaterally. GASTROINTESTINAL: Abdomen obese; distended. Tender throughout to palpation. Well healed incisions from LapBand surgery--- Lapband port is palpable in the epigastric region. MUSCULOSKELETAL: Extremities without clubbing, cyanosis, or edema. No obvious deformities. NEUROLOGICAL: Awake and alert. No obvious cranial nerve deficits. Motor grossly within normal limits. Five out of 5 muscle strength in the arms and legs. Normal speech. PSYCHIATRIC: Appropriate mood and affect; insight and judgment normal. Results - Labs 12/15/18 13:27 12/15/18 13:27 Laboratory Results CBC w Diff Auto diff final 12/13/18 05:16 WBC 23.7 th/mm3 (4.0-11.0) H 12/13/18 05:16 RBC 6.23 mil/mm3 (4.50-5.90) H 12/13/18 05:16 Hgb 17.6 gm/dL (13.0-17.0) H 12/13/18 05:16 Hct 52.8 % (39.0-51.0) H 12/13/18 05:16 MCV 84.7 fL (80.0-100.0) 12/13/18 05:16 MCH 28.2 pg (27.0-34.0) 12/13/18 05:16 MCHC 33.2 % (32.0-36.0) 12/13/18 05:16 RDW 15.6 % (11.6-17.2) 12/13/18 05:16 Plt Count 214 th/mm3 (150-450) 12/13/18 05:16 MPV 11.4 fL (7.0-11.0) H 12/13/18 05:16 Neut % (Auto) 91.0 % (16.0-70.0) H 12/13/18 05:16 Lymph % (Auto) 5.0 % (9.0-44.0) L 12/13/18 05:16 [place] % (Auto) 3.8 % (0.0-8.0) 12/13/18 05:16 Eos % (Auto) 0.1 % (0.0-4.0) 12/13/18 05:16 Baso % (Auto) 0.1 % (0.0-2.0) 12/13/18 05:16 Neut # (Auto) 21.6 th/mm3 (1.8-7.7) H 12/13/18 05:16 Lymph # (Auto) 1.2 th/mm3 (1.0-4.8) 12/13/18 05:16 [place] # (Auto) 0.9 th/mm3 (0.0-0.9) 12/13/18 05:16 Eos # (Auto) 0.0 th/mm3 (0.0-0.4) 12/13/18 05:16 Baso # (Auto) 0.0 th/mm3 (0.0-0.2) 12/13/18 05:16 WBC Differential . 12/13/18 05:16 Differential Comment . 12/13/18 05:16 PT 11.9 sec (9.8-11.6) H 12/13/18 08:00 INR 1.2 Ratio 12/13/18 08:00 APTT 27.5 sec (23.4-31.7) 12/13/18 08:00 Sodium 139 meq/L (136-145) 12/13/18 05:16 Potassium 3.6 meq/L (3.5-5.1) 12/13/18 05:16 Chloride 105 meq/L (98-107) 12/13/18 05:16 Carbon Dioxide 25.6 meq/L (21.0-32.0) 12/13/18 05:16 Anion Gap 8 meq/L (5-15) 12/13/18 05:16 BUN 17 mg/dL (7-18) 12/13/18 05:16 Creatinine 1.40 mg/dL (0.60-1.30) H 12/13/18 05:16 Estimated GFR 55 mL/min (>89) L 12/13/18 05:16 Random Glucose 131 mg/dL (74-106) H 12/13/18 05:16 Hemoglobin A1c 5.3 % (4.3-6.0) 12/12/18 08:48 Calcium 8.1 mg/dL (8.5-10.1) L 12/13/18 05:16 Magnesium 2.2 mg/dL (1.5-2.5) 12/11/18 23:50 Total Bilirubin 3.3 mg/dL (0.2-1.0) H 12/13/18 05:16 Direct Bilirubin 5.5 mg/dL (0.0-0.2) H 12/12/18 08:48 AST 131 U/L (15-37) H 12/13/18 05:16 ALT 366 U/L (12-78) H 12/13/18 05:16 Alkaline Phosphatase 235 U/L (45-117) H 12/13/18 05:16 Total Protein 7.2 g/dL (6.4-8.2) 12/13/18 05:16 Albumin 3.1 g/dL (3.4-5.0) L 12/13/18 05:16 Triglycerides 92 mg/dL (42-150) 12/12/18 08:48 Lipase 3070 U/L (73-393) H 12/13/18 05:16 Urine Color Anjali (Yellw/Straw) H 12/12/18 05:00 Urine Clarity Clear (Clear) 12/12/18 05:00 Urine pH 5.0 (5.0-8.5) 12/12/18 05:00 Ur Specific [place] 1.010 (1.002-1.035) 12/12/18 05:00 Urine Protein 30 mg/dL (Neg-Trace) H 12/12/18 05:00 Urine Glucose (UA) 100 mg/dL (Negative) H 12/12/18 05:00 Urine Ketones 80 or greater mg/dL (Negative) H 12/12/18 05:00 Urine Occult Blood Trace (Negative) 12/12/18 05:00 Urine Nitrate Negative (Negative) 12/12/18 05:00 Urine Bilirubin Moderate (Negative) H 12/12/18 05:00 Urine Ictotest Positive (Negative) H 12/12/18 05:00 Urine Urobilinogen 2.0 mg/dL (Less than 2) H 12/12/18 05:00 Ur Leukocyte Esterase Negative (Negative) 12/12/18 05:00 Urine RBC 0-3 /hpf (0-3) 12/12/18 05:00 Urine WBC 0-5 /hpf (0-5) 12/12/18 05:00 Ur Squamous Epith Cells 0-5 /hpf (0-5) 12/12/18 05:00 Micro UA Comment Culture not ind 12/12/18 05:00 Ur Microscopic Review Microscopic reviewed 12/12/18 05:00 Urine Culture Comments Culture not ind 12/12/18 05:00 Impressions Cholangiopancreatography MRI 12/12/18 00:00 CONCLUSION: 1. Large gallstones. 2. Moderate dilation of the common bile duct and mild dilation of the intrahepatic biliary system without intraluminal filling defects. 3. Mild amount of ascites adjacent to the tail of the pancreas and about the spleen 4. May consider performing hepatobiliary tract scan to evaluate patency of the cystic duct and to evaluate for evidence of functional biliary obstruction.. Hepatobiliary Scan Nuclear Medicine 12/12/18 00:00 CONCLUSION: 1. Delayed uptake and no significant excretion of radiotracer from the hepatic parenchyma has differential considerations of either severe hepatocellular dysfunction or biliary obstruction. There is dilation of the intra and extrahepatic biliary system on CT and MRCP, making biliary obstruction more likely. 2. Cystic duct patency cannot be assessed due to the lack of excretion of radiotracer. Abdomen/Pelvis CT 12/12/18 00:42 CONCLUSION: 1. Gallstones. 2. Mild intra and extra hepatic biliary ductal dilatation 3. Acute pancreatitis - Imaging Imaging: ITS Impressions Cholangiopancreatography MRI 12/12/18 00:00 CONCLUSION: 1. Large gallstones. 2. Moderate dilation of the common bile duct and mild dilation of the intrahepatic biliary system without intraluminal filling defects. 3. Mild amount of ascites adjacent to the tail of the pancreas and about the spleen 4. May consider performing hepatobiliary tract scan to evaluate patency of the cystic duct and to evaluate for evidence of functional biliary obstruction.. Hepatobiliary Scan Nuclear Medicine 12/12/18 00:00 CONCLUSION: 1. Delayed uptake and no significant excretion of radiotracer from the hepatic parenchyma has differential considerations of either severe hepatocellular dysfunction or biliary obstruction. There is dilation of the intra and extrahepatic biliary system on CT and MRCP, making biliary obstruction more likely. 2. Cystic duct patency cannot be assessed due to the lack of excretion of radiotracer. Abdomen/Pelvis CT 12/12/18 00:42 CONCLUSION: 1. Gallstones. 2. Mild intra and extra hepatic biliary ductal dilatation 3. Acute pancreatitis HIDA scan: report reviewed CT scan - abdomen: image reviewed Additional studies: MRCP reviewed Assessment and Plan - Plan 43 year old male with GS pancreatitis -ERCP planned for today -NPO -Discussed with patient the role of laparoscopic cholecystectomy -Will follow up on ERCP results -Will need to monitor LFTs prior to lap kevin -Adjusted frequency of IV Dilaudid -Thank you for this consult We will continue to follow Discussed Condition With: Dr. Nigel Wilcox - Attending Attestation The exam, history, and the medical decision-making described in the above note were completed with the assistance of the mid-level provider. I reviewed and agree with the findings presented. I attest that I had a [id number] encounter with the patient on the same day, and personally performed and documented my assessment and findings in the medical record. Patient with gallstone pancreatitis, has a history of lap band Abdomen with epigastric pain, severe with palpation consistent with pancreatitis Long discussion with patient at bedside about management recommendations including cooling of pancreatitis prior to surgery With the plan for delayed cholecystectomy
[2018-12-13] MEDS ORDERED: Metoprolol Tartrate 25 MG Tablet PO ONE (12:42)
[2018-12-13] MEDS ORDERED: Chlorhexidine Gluconate 2% 1 Pack (2 Cloths) TOPICAL ONE (12:42)
[2018-12-13] MEDS ORDERED: Sodium Chlor 0.9% Inj 500 ML IV.SIG ONE (13:00)
[2018-12-13] MEDS ORDERED: Iohexol 350 MG/ML 50 ML Vial (for Rad Diag) ONE (13:54)
[2018-12-13] MEDS ORDERED: Phenylephrine/NS 1000 MCG/10ML Syringe IV.PUSH ONE (14:25)
[2018-12-13] MEDS ORDERED: Lidocaine PF 1% Inj 5 ML Syringe OTHER ONE (14:25)
[2018-12-13] MEDS ORDERED: Glycopyrrolate Inj 1 MG/5 ML Syringe IV.PUSH ONE (14:25)
[2018-12-13] MEDS ORDERED: Succinylcholine Inj 100 MG/5 ML Syringe IV.PUSH ONE (14:25)
[2018-12-13] MEDS ORDERED: Neostigmine Inj 5 MG/5 ML Syringe IV.PUSH ONE (14:25)
[2018-12-13] MEDS ORDERED: fentaNYL Citrate Inj 100 MCG/2 ML Ampul ONE (15:46)
[2018-12-14] MEDS: Piperacil/Tazo 3.375 GM Premix 3.375 GM/50 ML PIGGYBACK IV.SIG SCH ×4 (02:14→20:34)
[2018-12-14] MEDS: HYDROmorphone PF Inj 2 MG/ML Vial IV.PUSH PRN ×6 (02:14→18:38)
[2018-12-14] MEDS: Sod Chloride 0.9% Inj 1,000 ML IV.CONT SCH ×3 (03:58→23:52)
--- NOTE | 2018-12-14 04:17 | MB ---
cc: Ahsan Velasquez MD DATE: 12/14/2018 REASON FOR CONSULTATION: Morbid obesity, history of laparoscopic gastric banding. HISTORY OF PRESENT ILLNESS: The patient is a 43-year-old male who presented with several medical issues including BMI currently of 37 and present lap band in place. The patient came in with acute onset of abdominal pain. The patient noted the pain to be 8/10, currently 4/10. He had further workup including laboratory data showing acute pancreatitis with gallstone pancreatitis and is undergoing treatment for this. CT abdomen and pelvis confirmation of this and the patient noted to have large gallstones, for which general surgical consultation was done along with a gastroenterology consult and the patient is undergoing ERCP for possible common duct stone extraction. The patient is noted to have previous gastric band placed in [place] in 2007. He has noted he has done relatively well with gastric band losing over 100 pounds. He has not followed up with a bariatric surgeon recently. He notes that he has had this initial weight loss with some weight regain and states that he has not had any adjustments or fills recently with his gastric band. The patient further denies being on any vitamins at this time and states a relatively healthy, active lifestyle. CT reviewed by myself showing presence of lap band in place at approximately 45-degree angle. PAST MEDICAL HISTORY: Morbid obesity, asthma, sleep apnea. PAST SURGICAL HISTORY: Hernia surgery and lap band surgery 11 years ago in [place]. SOCIAL HISTORY: Denies smoking, ETOH or IVDA. ALLERGIES: NO KNOWN DRUG ALLERGIES. MEDICATIONS: See EMR. FAMILY HISTORY: Denies diabetes or hypertension. REVIEW OF SYSTEMS: HEENT: Denies eye pain, ear pain. NECK: Denies swelling or pain. LUNGS: Denies cough or wheeze. HEART: Denies palpitations or chest pain. ABDOMEN: Denies vomiting. Complained of nausea and abdominal pain. GENITOURINARY: Denies dysuria or hematuria. Denies polyuria or polydipsia. INTEGUMENT: Denies any mass or lesions. NEUROLOGIC: Denies numbness or tingling. PHYSICAL EXAM: GENERAL: The patient in no acute distress. VITAL SIGNS: Temperature 98.5, pulse 79, respirations 20, blood pressure 142/82, saturation 86%. HEENT: Pupils equal, round, reactive. NECK: Supple. Trachea midline. LUNGS: Clear to auscultation bilaterally. HEART: S1, S2. ABDOMEN: Soft, positive tenderness to palpation in the epigastric region. Palpable port noted to be in place, well-healed surgical scars. NEUROLOGIC: GCS of 15. 5/5 motor in all extremities. INTEGUMENT: No obvious masses or lesions. PSYCHIATRIC: Appropriate mood and appropriate insight. LABORATORY AND DIAGNOSTIC DATA: WBC 23, hemoglobin 17.6, hematocrit 52.8, platelets 214. INR is 1.2, PTT is 27.5. Sodium 139, potassium 3.6, BUN of 17, creatinine 1.4, glucose 131, AST 131, ALT is 366. Alkaline phosphatase is 235. Bilirubin currently 3.3, previous is 7.0. Lipase current is 3000, previous 18,000. Neck CT reviewed by myself showing acute pancreatitis, lap band in position, acute angle. ASSESSMENT: The patient is a 43-year-old male with history of lap band 8 years ago, presents with weight regain, nausea and abdominal pain, gallstone pancreatitis. PLAN: After full workup, the patient was noted to have above-noted issues. At this point, the patient has evidence of gallstone pancreatitis. Deferred to general surgical evaluation and gastroenterology for ERCP and possible cholecystectomy in this hospital stay. In regard to the patient's lap band, discussed with the patient in detail. He was interested for further evaluation and possible revision versus removal of gastric band. At this point, this does not appear to be emergent. I would recommend resolution of gallbladder and pancreatic issues prior to intervention. The patient can follow up in my office for further evaluation and management. Discussed with the patient in detail. He states understanding and agrees. Bariatric surgery will sign off. MD SENIA Oseguera/zheng , 02:54 AM , 03:06 AM
--- NOTE | 2018-12-14 07:30 | P.PNIM ---
Subjective Interval history: f/u; pancreatitis in no acute distress. abdominal pain is better with no nausea or vomiting. afebrile. Physical Exam Vital signs: Vital Signs 12/13/18 07:32 12/13/18 07:40 12/13/18 10:30 Temperature 98.6 F 99.3 F Pulse Rate 123 H 90 Respiratory Rate 20 18 Blood Pressure 148/91 H 131/84 Pulse Oximetry 92 L 95 12/13/18 11:30 12/13/18 15:39 12/13/18 15:45 Temperature 99.4 F Pulse Rate 93 H 94 H Respiratory Rate 18 16 17 Blood Pressure 141/80 H 137/82 Pulse Oximetry 96 96 12/13/18 16:10 12/13/18 17:30 12/13/18 19:40 Temperature 99.4 F 98.5 F 98.7 F Pulse Rate 80 79 77 Respiratory Rate 17 20 18 Blood Pressure 126/80 142/82 H 142/79 H Pulse Oximetry 96 78 L 98 12/14/18 00:00 12/14/18 00:50 12/14/18 03:58 Temperature 97.9 F Pulse Rate 64 Respiratory Rate 18 19 19 Blood Pressure 120/69 Pulse Oximetry 95 12/14/18 04:00 12/14/18 06:25 Temperature 97.6 F Pulse Rate 61 Respiratory Rate 18 19 Blood Pressure 112/68 Pulse Oximetry 94 L Intake & Output 12/13/18 12/14/18 12/14/18 18:59 06:59 18:59 Intake Total 3050 / 3050 4967 / 4967 Balance 3050 / 3050 4967 / 4967 Intake: IV 1850 / 1850 4467 / 4467 LR 1000 mL Inj 1,000 ML @ 500 1000 / 1000 1500 / 1500 mls/hr IV.CONT .Q2H [facility] Rx#: [id number] NS Inj 1,000 ML @ 100 mls/hr IV 750 / 750 .CONT .Q10H LEANA Rx#:[id number] LR 1000 mL Inj 1,000 ML @ 250 2867 / 2867 mls/hr IV.SIG .Q4H LEANA Rx#: [id number] Zosyn 3.375 GM Premix 3.375 gm 100 / 100 100 / 100 In 50 ml @ 100 mls/hr IV.SIG Q6H LEANA Rx#:[id number] Oral 500 / 500 Anesthesia Amount 1200 / 1200 Other: # Voids 1 4 Date of Last Bowel Movement 12/11/18 Constitutional no acute distress Routine Respiratory Exam Present CTA bilaterally Routine Cardiovascular Exam Present RRR Routine Abdominal Exam Present soft and tenderness Comments: mild generalized tenderness. Routine Extremities Exam Comments: no pedal edema. Routine Neurological Exam Present alert and oriented X3 Results Labs CBC & Chem 7: 12/14/18 10:27 12/14/18 07:38 Labs: Microbiology 12/12/18 16:32 Blood - Peripheral Aerobic Blood Culture - Preliminary No growth in 1 day 12/12/18 16:32 Blood - Peripheral Anaerobic Blood Culture - Preliminary No growth in 1 day 12/12/18 16:25 Blood - Peripheral Aerobic Blood Culture - Preliminary No growth in 1 day 12/12/18 16:25 Blood - Peripheral Anaerobic Blood Culture - Preliminary No growth in 1 day Imaging Imaging: Impressions Hepatobiliary Scan Nuclear Medicine 12/12/18 00:00 CONCLUSION: 1. Delayed uptake and no significant excretion of radiotracer from the hepatic parenchyma has differential considerations of either severe hepatocellular dysfunction or biliary obstruction. There is dilation of the intra and extrahepatic biliary system on CT and MRCP, making biliary obstruction more likely. 2. Cystic duct patency cannot be assessed due to the lack of excretion of radiotracer. Assessment and Plan Plan A/P Sepsis Patient met criteria on admission with leukocytosis, tachycardia, pancreatitis Blood cultures are negative so far. Continue Zosyn -monitor CBC and temps. Abdominal pain with abnormal findings of elevated liver enzymes, hyperbilirubinemia, elevated pancreatic enzyme s/p lap band CT of the abdomen indicating gallstones, mild intrahepatic ductal dilatation, acute pancreatitis MRCP and indicating large gallstones, Moderate dilation of the common bile duct and mild dilation of the intrahepatic biliary system without intraluminal filling defects., mild amount of ascites adjacent to the tail of the pancreas and about the spleen, may consider performing hepatobiliary tract scan to evaluate patency of the cystic duct and to evaluate for evidence of functional biliary obstruction. Triglyceride level was 92 -GI consult appreciated and s/p ERCP and stent placement -general surgery consult appreciated and plan for possible cholecystectomy during this hospital stay. -outpatient follow-up with surgery regarding his lab band. renal insufficiency of unknown duration; likely SUGEY Continue IV fluids Monitor renal function Hyperglycemia Hemoglobin A1c 5.3 DVT prevention Sequential compression devices, early ambulation Discharge Planning: home when stable and cleared by GI and general surgery. Progress Note: Quality VTE Deep Vein Thrombosis/Pulmonary Embolism Present on Admission: No
[2018-12-14 08:50] LABS: Albumin 2.6 g/dL (3.4-5.0); Anion Gap 5 meq/L (5-15); Aspartate Aminotransferase 42 U/L (15-37); Blood Urea Nitrogen 16 mg/dL (7-18); Calcium 7.5 mg/dL (8.5-10.1); Carbon Dioxide 30.6 meq/L (21.0-32.0); Chloride 104 meq/L (98-107); Glomerular Filtration Rate 76 mL/min (>89); Glucose,Random 92 mg/dL (74-106); Lipase 601 U/L (73-393); Potassium 4.2 meq/L (3.5-5.1); Sodium 140 meq/L (136-145)
[2018-12-14 08:56] LABS: Alanine Aminotransferase 180 U/L (12-78); Alkaline Phosphatase 164 U/L (45-117); Total Protein 6.2 g/dL (6.4-8.2)
--- NOTE | 2018-12-14 10:12 | P.PNGI ---
Subjective Interval history: Patient awake and alert Pacing in room reporting abdominal pain IV access lost due to infiltration Denies nausea or vomiting Post ERCP Physical Exam Vital signs: Vital Signs 12/13/18 10:30 12/13/18 11:30 12/13/18 15:39 Temperature 99.3 F 99.4 F Pulse Rate 90 93 H Respiratory Rate 18 18 16 Blood Pressure 131/84 141/80 H Pulse Oximetry 95 96 12/13/18 15:45 12/13/18 16:10 12/13/18 17:30 Temperature 99.4 F 98.5 F Pulse Rate 94 H 80 79 Respiratory Rate 17 17 20 Blood Pressure 137/82 126/80 142/82 H Pulse Oximetry 96 96 78 L 12/13/18 19:40 12/14/18 00:00 12/14/18 00:50 Temperature 98.7 F 97.9 F Pulse Rate 77 64 Respiratory Rate 18 18 19 Blood Pressure 142/79 H 120/69 Pulse Oximetry 98 95 12/14/18 03:58 12/14/18 04:00 12/14/18 06:25 Temperature 97.6 F Pulse Rate 61 Respiratory Rate 19 18 19 Blood Pressure 112/68 Pulse Oximetry 94 L 12/14/18 08:00 Temperature 97.5 F L Pulse Rate 69 Respiratory Rate 18 Blood Pressure 163/92 H Pulse Oximetry 95 Intake & Output 12/13/18 12/14/18 12/14/18 18:59 06:59 18:59 Intake Total 3050 / 3050 4967 / 4967 Balance 3050 / 3050 4967 / 4967 Intake: IV 1850 / 1850 4467 / 4467 LR 1000 mL Inj 1,000 ML @ 500 1000 / 1000 1500 / 1500 mls/hr IV.CONT .Q2H [facility] Rx#: [id number] NS Inj 1,000 ML @ 100 mls/hr IV 750 / 750 .CONT .Q10H LEANA Rx#:[id number] LR 1000 mL Inj 1,000 ML @ 250 2867 / 2867 mls/hr IV.SIG .Q4H [facility]ANA Rx#: [id number] Zosyn 3.375 GM Premix 3.375 gm 100 / 100 100 / 100 In 50 ml @ 100 mls/hr IV.SIG Q6H [facility]ANA Rx#:[id number] Oral 500 / 500 Anesthesia Amount 1200 / 1200 Other: # Voids 1 4 Date of Last Bowel Movement 12/11/18 12/11/18 - Constitutional no acute distress, cooperative - Routine HEENT Exam Head: Present: normocephalic Eye: Present: conjunctival icterus Comments: Resolving - Routine Respiratory Exam Present: CTA bilaterally. Absent: accessory muscle use - Routine Cardiovascular Exam Present: RRR - Routine Abdominal Exam Present: soft, normoactive bowel sounds, tenderness. Absent: distended, guarding, firm Comments: Left upper quadrant mild tenderness on palpation during exam - Routine Extremities Exam Absent: edema - Routine Skin Exam Present: dry, warm - Routine Neurological Exam Present: alert, oriented X3 Results - Labs CBC & Chem 7: 12/15/18 13:27 12/15/18 13:27 Laboratory Results - last 24 hr 12/14/18 07:38 Sodium 140 Potassium 4.2 Chloride 104 Carbon Dioxide 30.6 Anion Gap 5 BUN 16 Creatinine 1.06 Estimated GFR 76 L Random Glucose 92 Calcium 7.5 L Total Bilirubin 1.4 H AST 42 H ALT 180 H Alkaline Phosphatase 164 H Total Protein 6.2 L D Albumin 2.6 L Lipase 601 H Microbiology 12/12/18 16:32 Blood - Peripheral Aerobic Blood Culture - Preliminary No growth in 1 day 12/12/18 16:32 Blood - Peripheral Anaerobic Blood Culture - Preliminary No growth in 1 day 12/12/18 16:25 Blood - Peripheral Aerobic Blood Culture - Preliminary No growth in 1 day 12/12/18 16:25 Blood - Peripheral Anaerobic Blood Culture - Preliminary No growth in 1 day - Imaging Impressions Hepatobiliary Scan Nuclear Medicine 12/12/18 00:00 CONCLUSION: 1. Delayed uptake and no significant excretion of radiotracer from the hepatic parenchyma has differential considerations of either severe hepatocellular dysfunction or biliary obstruction. There is dilation of the intra and extrahepatic biliary system on CT and MRCP, making biliary obstruction more likely. 2. Cystic duct patency cannot be assessed due to the lack of excretion of radiotracer. Assessment and Plan (1) Gallstone pancreatitis Status: Acute Code(s): K85.10 - Biliary acute pancreatitis without necrosis or infection (2) Pancreatitis Status: Acute Code(s): K85.90 - Acute pancreatitis without necrosis or infection, unspecified - Plan 12/14/2018 Gallstone pancreatitis-abdominal pain Post ERCP with sphincterotomy Total bilirubin 1.4 AST 42 ALT 180 alk phos 164 much improved Lipase 601 Leukocytosis-continue Zosyn and monitor CBC Plan -Clear liquid diet -Monitor liver function tests -Monitor CBC and lipase -General surgery following-cholecystectomy when stable -CT abdomen and pelvis with IV and p.o. contrast 12/15/2018 if patient not having surgery -Antiemetics and analgesics as per attending -Continue PPI -IV hydration -Supportive care -Pancreatitis improving, likely gallstone pancreatitis. -Surgery following, GI will sign off at this time-please notify for any further assistance This patient has been seen by myself and Dr. Noble and this note is written on his behalf - Attending Attestation Dr. Noble
[2018-12-14 10:48] LABS: Hematocrit 41.3 % (39.0-51.0); Hemoglobin 13.6 gm/dL (13.0-17.0); Mean Corpuscular Hemoglobin 28.1 pg (27.0-34.0); Mean Corpuscular Volume 85.2 fL (80.0-100.0); Mean Platelet Volume 9.6 fL (7.0-11.0); Neut % (Auto) 86.9 % (16.0-70.0); Platelet Count 153 th/mm3 (150-450); Red Blood Count 4.84 mil/mm3 (4.50-5.90); Red Cell Distribution Width 15.1 % (11.6-17.2)
[2018-12-14 10:49] LABS: Baso % (Auto) 0.3 % (0.0-2.0); Eos % (Auto) 0.1 % (0.0-4.0); Lymph # (Auto) 1.2 th/mm3 (1.0-4.8); Lymph % (Auto) 8.3 % (9.0-44.0); Mono # (Auto) 0.6 th/mm3 (0.0-0.9); Mono % (Auto) 4.4 % (0.0-8.0); Neut # (Auto) 12.1 th/mm3 (1.8-7.7)
--- NOTE | 2018-12-14 15:01 | P.PNGS ---
Subjective Interval history: Ambulating in the room Painful this AM Physical Exam Vital signs: Vital Signs 12/13/18 15:39 12/13/18 15:45 12/13/18 16:10 Temperature 99.4 F 99.4 F Pulse Rate 93 H 94 H 80 Respiratory Rate 16 17 17 Blood Pressure 141/80 H 137/82 126/80 Pulse Oximetry 96 96 96 12/13/18 17:30 12/13/18 19:40 12/14/18 00:00 Temperature 98.5 F 98.7 F 97.9 F Pulse Rate 79 77 64 Respiratory Rate 20 18 18 Blood Pressure 142/82 H 142/79 H 120/69 Pulse Oximetry 78 L 98 95 12/14/18 00:50 12/14/18 03:58 12/14/18 04:00 Temperature 97.6 F Pulse Rate 61 Respiratory Rate 19 19 18 Blood Pressure 112/68 Pulse Oximetry 94 L 12/14/18 06:25 12/14/18 08:00 12/14/18 10:45 Temperature 97.5 F L Pulse Rate 83 Respiratory Rate 19 16 18 Blood Pressure 129/72 Pulse Oximetry 95 12/14/18 12:00 12/14/18 13:25 Temperature 98.3 F Pulse Rate 66 Respiratory Rate 16 18 Blood Pressure 124/61 Pulse Oximetry 94 L Intake & Output 12/13/18 12/14/18 12/14/18 18:59 06:59 18:59 Intake Total 3050 / 3050 4967 / 4967 2049 Balance 3050 / 3050 4967 / 4967 2049 Intake: IV 1850 / 1850 4467 / 4467 2049 LR 1000 mL Inj 1,000 ML @ 500 1000 / 1000 1500 / 1500 mls/hr IV.CONT .Q2H [facility] Rx#: [id number] NS Inj 1,000 ML @ 100 mls/hr IV 750 / 750 .CONT .Q10H LEANA Rx#:[id number] LR 1000 mL Inj 1,000 ML @ 250 2867 / 2867 2000 / 2000 mls/hr IV.SIG .Q4H [facility] Rx#: [id number] Zosyn 3.375 GM Premix 3.375 gm 100 / 100 100 / 100 50 / 50 In 50 ml @ 100 mls/hr IV.SIG Q6H [facility]ANA Rx#:[id number] Oral 500 / 500 Anesthesia Amount 1200 / 1200 Other: # Voids 1 4 Date of Last Bowel Movement 12/11/18 12/11/18 Narrative: Alert and awake Abd: soft; distended; tender throughout Results - Labs 12/15/18 13:27 12/15/18 13:27 Laboratory Results - last 24 hr 12/14/18 12/14/18 07:38 10:27 WBC 14.0 H RBC 4.84 Hgb 13.6 D Hct 41.3 MCV 85.2 MCH 28.1 MCHC 33.0 RDW 15.1 Plt Count 153 MPV 9.6 Neut % (Auto) 86.9 H Lymph % (Auto) 8.3 L Clark % (Auto) 4.4 Eos % (Auto) 0.1 Baso % (Auto) 0.3 Neut # (Auto) 12.1 H Lymph # (Auto) 1.2 Clark # (Auto) 0.6 Eos # (Auto) 0.0 Baso # (Auto) 0.0 WBC Differential . Differential Comment Auto diff final Sodium 140 Potassium 4.2 Chloride 104 Carbon Dioxide 30.6 Anion Gap 5 BUN 16 Creatinine 1.06 Estimated GFR 76 L Random Glucose 92 Calcium 7.5 L Total Bilirubin 1.4 H AST 42 H ALT 180 H Alkaline Phosphatase 164 H Total Protein 6.2 L D Albumin 2.6 L Lipase 601 H - Imaging Imaging: ITS Impressions Cholangiopancreatography MRI 12/12/18 00:00 CONCLUSION: 1. Large gallstones. 2. Moderate dilation of the common bile duct and mild dilation of the intrahepatic biliary system without intraluminal filling defects. 3. Mild amount of ascites adjacent to the tail of the pancreas and about the spleen 4. May consider performing hepatobiliary tract scan to evaluate patency of the cystic duct and to evaluate for evidence of functional biliary obstruction.. Hepatobiliary Scan Nuclear Medicine 12/12/18 00:00 CONCLUSION: 1. Delayed uptake and no significant excretion of radiotracer from the hepatic parenchyma has differential considerations of either severe hepatocellular dysfunction or biliary obstruction. There is dilation of the intra and extrahepatic biliary system on CT and MRCP, making biliary obstruction more likely. 2. Cystic duct patency cannot be assessed due to the lack of excretion of radiotracer. Abdomen/Pelvis CT 12/12/18 00:42 CONCLUSION: 1. Gallstones. 2. Mild intra and extra hepatic biliary ductal dilatation 3. Acute pancreatitis Assessment and Plan - Plan 43 year old male with GS pancreatitis -S/p ERCP -LFTs trending down -Clear liquids -Discussed with patient the role of laparoscopic cholecystectomy---will need to cool off pancreatitis before surgery -Labs in AM -IV Dilaudid for pain -NPO after MN in case OR tomorrow; will check labs in AM - Attending Attestation The exam, history, and the medical decision-making described in the above note were completed with the assistance of the mid-level provider. I reviewed and agree with the findings presented. I attest that I had a [id number] encounter with the patient on the same day, and personally performed and documented my assessment and findings in the medical record. Patient with gallstone pancreatitis More pain since ERCP, will increase Dilaudid as needed Reassess clinically in a.m., if pain better and pancreatitis resolving consider cholecystectomy
[2018-12-14] MEDS: HYDROmorphone PF Inj 1 MG/ML Ampul IV.PUSH PRN ×2 (21:32→23:50)
[2018-12-15] MEDS: HYDROmorphone PF Inj 1 MG/ML Ampul IV.PUSH PRN ×2 (02:06→05:46)
[2018-12-15] MEDS: Piperacil/Tazo 3.375 GM Premix 3.375 GM/50 ML PIGGYBACK IV.SIG SCH ×4 (02:30→20:14)
[2018-12-15] MEDS ORDERED: Bupivacaine/Epinephrine Inj 0.25% 50 ML Vial ONE (07:36)
[2018-12-15] MEDS ORDERED: Glycopyrrolate Inj 1 MG/5 ML Syringe IV.PUSH ONE (08:06)
[2018-12-15] MEDS ORDERED: Succinylcholine Inj 100 MG/5 ML Syringe IV.PUSH ONE (08:06)
[2018-12-15] MEDS ORDERED: Neostigmine Inj 5 MG/5 ML Syringe IV.PUSH ONE (08:06)
[2018-12-15] MEDS ORDERED: Lidocaine PF 1% Inj 5 ML Syringe INFILTRATN ONE (08:06)
[2018-12-15] MEDS ORDERED: fentaNYL Citrate Inj 100 MCG/2 ML Ampul ONE (11:12)
[2018-12-15] MEDS ORDERED: *Ondansetron Inj 4 MG/2 ML Vial PERIprocedural Use ONLY ONE (11:41)
[2018-12-15] MEDS ORDERED: *HYDROmorphone PF Inj 1 MG/ML Ampul PERIprocedural Use ONLY ONE (12:01)
--- NOTE | 2018-12-15 13:07 | MP ---
cc: [facility]ivasa Garces MDday[facility] centerDony cuevas MD DATE OF OPERATION: 12/15/2018 PREOPERATIVE DIAGNOSES: 1. Acute cholecystitis. 2. Gallstone pancreatitis. 3. Morbid obesity. POSTOPERATIVE DIAGNOSES: 1. Acute cholecystitis. 2. Gallstone pancreatitis. 3. Inflammatory phlegmon right upper quadrant. 4. Morbid obesity. 5. Completely contracted and scarred gallbladder. PROCEDURE PERFORMED: Laparoscopic subtotal cholecystectomy. SURGEON: Srinivasa Garces MD ANESTHESIA: General endotracheal. ESTIMATED BLOOD LOSS: None. INDICATIONS FOR PROCEDURE: Mr. Wilcox is a pleasant 43-year-old gentleman, who presented to the hospital on 12/11/2018 with abdominal pain. He was worked up and found to have acute cholecystitis, as well as gallstone pancreatitis. The patient underwent an ERCP for common duct stone extraction and clearing. Post-procedure, he did well. His LFTs and lipase trended back down toward normal. His pain improved. He was advised to undergo cholecystectomy due to his cholecystitis, as well as the fact that he had several retained gallstones still within the gallbladder, and he was at risk for recurrent episode of the pancreatitis. Risks and benefits of the procedure were discussed with him in detail, including the fact that it was high risk, due to the acute episode, as well as his morbid obesity. He expressed understanding. INTRAOPERATIVE FINDINGS: The patient had an inflammatory phlegmon in the right upper quadrant. He had very edematous, thickened adhesions in the right upper quadrant. The gallbladder was completely contracted, under the liver, and very difficult to localize and access. The gallbladder was transected down toward the neck, and found to contain no bile whatsoever, and several large gallstones. These were all removed with the Endo-Pouch bag. Proximal gallbladder was followed down. It was carefully inspected. We could see no gallstones within the lumen and there was no bile leaking out. We dissected the gallbladder neck down in a retrograde fashion, and endo-looped the proximal portion. Distal gallbladder was then excised with electrocautery Bovie and placed in the Endo-pouch bag with the distal gallbladder. DETAILS OF PROCEDURE: The patient was identified, brought to the operating room, placed supine on the operating table. After adequate general endotracheal anesthesia was achieved, the abdomen was prepped and draped in standard surgical fashion. Supraumbilical space was anesthetized with 0.25% Marcaine. Supraumbilical incision was made. Dissection carried down to subcutaneous tissue to midline fascia. Midline fascia was incised sharply. Finger was then placed in the peritoneal cavity without difficulty. Blunt balloon trocar was inserted, and the abdomen was insufflated to 15 mmHg using CO2 gas. Immediately, we noted the patient's laparoscopic band tubing and it was undisturbed. Next, two 5 mm trocars were placed in the right upper quadrant, after anesthetizing the skin and subcutaneous tissue with 0.25% Marcaine. Due to the patient's morbid obesity, and the acute inflammatory nature of the abdomen and the right upper quadrant, we had very poor visualization. We increased insufflation to 18 to try and get more insufflation and see better. Visualization was extremely limited. We therefore placed a third port in the right upper quadrant under direct vision after anesthetizing the skin and subcutaneous tissue with 0.25% Marcaine. A Destiny-Flex retractor was placed through that, and this was used to hold down the stomach, duodenum, and omentum, so we could see the gallbladder. The gallbladder was finally visualized. Gallbladder was completely scarred, contracted, and thickened. It was very difficult to grasp. We then placed a fourth 5 mm port in the right upper quadrant in order to have 3 operating ports, because 1 port was being used to hold down the transverse colon, stomach, and omentum, which were all edematous due to the acute pancreatitis. Once we did this, we were able to see the gallbladder better. We followed the gallbladder down towards the neck. Again, there was then acute inflammatory nature with extreme edema in the area. Suction dissector was used to dissect around the gallbladder down to the level of the neck. At the level of the neck, we could not get down any further. There was no way we were going to get down to the cystic duct, due to the acute inflammatory nature. At this point, I elected to go ahead and transect the gallbladder in the neck region with electrocautery Bovie. Once we opened the gallbladder, it was completely contracted. There was a small stone in the segment where we opened, and this was extracted with the grasper. The distal gallbladder was then grasped. It was completely contracted and barely had a lumen. There were multiple large stones. We then took the gallbladder down in an anterograde fashion using electrocautery Bovie. Several points of the liver bed were controlled with electrocautery Bovie. The distal gallbladder was then removed, and placed onto the liver to be removed later. Next, attention was directed to the proximal gallbladder. The lumen was quite small. We used a [place] to spread open the lumen, and see if there were any stones. We could not visualize any stones, even with the 45-degree scope. We suction irrigated out the gallbladder lumen, and milked stones came out. Of note, also, no bile was coming out. I went ahead and dissected the proximal gallbladder in a retrograde fashion down to the level of the gallbladder neck. Once we achieved the gallbladder neck, I did not feel comfortable going any lower due to the acute inflammatory nature and the poor visualization, due to the patient's morbid obesity and edema. At this point, I felt like we had gone low enough and we cleared all the gallstones out and removed the diseased gallbladder. Then, 2-0 PDS Endo-loops were then placed on the proximal portion of the gallbladder at the neck. These were then secured. The gallbladder beyond the Endo-loop was then excised with electrocautery Bovie. The appendiceal artery was encountered, and it was controlled with electrocautery Bovie without any problem. The 2 pieces of the gallbladder were then placed into an Endo-Pouch bag and brought out through the infraumbilical port. They were inspected. Gallbladder was completely contracted, massively thickened, and contained multiple large stones. It was sent to pathology for analysis. The liver bed was carefully inspected. There was no bleeding and no bile leaks. The stump of the gallbladder was carefully inspected, and there was no evidence of leakage of bile. I went ahead and placed a 10-Welsh Benedict-Randhawa drain in the liver bed adjacent to the gallbladder stump. This was secured with 3-0 nylon suture. The abdominal cavity was rinsed out with normal saline solution. No bleeding was noted. No bile was noted leaking from the stump. At this point, all ports were removed under direct vision. The abdomen was then desufflated. Midline fascia was repaired with 0 Vicryl in a [id number] fashion. Skin was closed with 4-0 Vicryl. Drain was secured with a 3-0 nylon. Please note this surgery took an excessive amount of time, due to the patient's morbid obesity, acute inflammatory nature of the pancreatitis, and the cholecystitis. Visualization was poor, but we were able to clearly see the gallbladder all the way down to the neck safely. The case took in excess of 2 hours. We had to open additional instruments. We had to place 2 additional ports in order to safely perform the procedure laparoscopically. We also had to leave a drain. Additional scrub staff had to come in, in order to retract and visualize the gallbladder. Srinivasa MD KRISHNA Ness/rh , 12:37 PM , 12:49 PM
[2018-12-15 14:20] LABS: Baso % (Auto) 0.1 % (0.0-2.0); Hematocrit 39.9 % (39.0-51.0); Hemoglobin 13.2 gm/dL (13.0-17.0); Lymph # (Auto) 0.6 th/mm3 (1.0-4.8); Lymph % (Auto) 4.2 % (9.0-44.0); Mean Corpuscular HGB Conc 33.2 % (32.0-36.0); Mean Corpuscular Hemoglobin 28.4 pg (27.0-34.0); Mean Corpuscular Volume 85.6 fL (80.0-100.0); Mean Platelet Volume 10.1 fL (7.0-11.0); Mono # (Auto) 0.7 th/mm3 (0.0-0.9); Mono % (Auto) 5.1 % (0.0-8.0); Neut # (Auto) 12.5 th/mm3 (1.8-7.7); Neut % (Auto) 90.6 % (16.0-70.0); Platelet Count 169 th/mm3 (150-450); Red Blood Count 4.66 mil/mm3 (4.50-5.90); Red Cell Distribution Width 14.8 % (11.6-17.2); White Blood Count 13.8 th/mm3 (4.0-11.0)
[2018-12-15 14:42] LABS: Albumin 2.5 g/dL (3.4-5.0); Anion Gap 7 meq/L (5-15); Aspartate Aminotransferase 79 U/L (15-37); Blood Urea Nitrogen 9 mg/dL (7-18); Calcium 7.8 mg/dL (8.5-10.1); Carbon Dioxide 28.5 meq/L (21.0-32.0); Chloride 103 meq/L (98-107); Glomerular Filtration Rate Greater Than 89 mL/min (>89); Glucose,Random 94 mg/dL (74-106); Lipase 114 U/L (73-393); Potassium 4.1 meq/L (3.5-5.1); Sodium 138 meq/L (136-145)
[2018-12-15 14:44] LABS: Alanine Aminotransferase 137 U/L (12-78)
[2018-12-15 14:46] LABS: Alkaline Phosphatase 105 U/L (45-117); Total Protein 6.6 g/dL (6.4-8.2)
--- NOTE | 2018-12-15 14:46 | P.PNIM ---
Subjective Interval history: Patient seen postoperatively. He reports he is feeling okay currently. Pain is controlled. No nausea or vomiting. Physical Exam Vital signs: Vital Signs 12/14/18 16:00 12/14/18 16:44 12/14/18 20:00 Temperature 99.0 F 98.5 F Pulse Rate 87 105 H Respiratory Rate 16 18 17 Blood Pressure 121/69 141/65 H Pulse Oximetry 96 98 12/15/18 00:16 12/15/18 04:14 12/15/18 11:01 Temperature 99.1 F 98.7 F 98.8 F Pulse Rate 81 73 114 H Respiratory Rate 17 17 18 Blood Pressure 138/72 121/68 143/91 H Pulse Oximetry 96 98 90 L 12/15/18 11:15 12/15/18 11:29 12/15/18 11:30 Temperature Pulse Rate 109 H 108 H Respiratory Rate 22 22 Blood Pressure 170/89 H 167/86 H Pulse Oximetry 93 L 90 L 95 12/15/18 11:45 12/15/18 11:55 12/15/18 12:00 Temperature 98.8 F Pulse Rate 106 H 104 H Respiratory Rate 16 22 Blood Pressure 154/76 H 140/85 Pulse Oximetry 95 95 94 L 12/15/18 12:15 12/15/18 12:25 12/15/18 12:30 Temperature Pulse Rate 97 H 100 H Respiratory Rate 19 17 Blood Pressure 139/87 140/75 Pulse Oximetry 94 L 95 92 L 12/15/18 12:45 Temperature Pulse Rate Respiratory Rate Blood Pressure Pulse Oximetry 94 L Intake & Output 12/14/18 12/15/18 12/15/18 18:59 06:59 18:59 Intake Total 3100 / 3100 4100 / 4100 550 / 550 Output Total 140 / 140 Balance 3100 / 3100 4100 / 4100 410 / 410 Intake: IV 3100 / 3100 4100 / 4100 50 / 50 NS Inj 1,000 ML @ 100 mls/hr IV 1000 / 1000 .CONT .Q10H [facility] Rx#:[id number] LR 1000 mL Inj 1,000 ML @ 250 3000 / 3000 3000 / 3000 mls/hr IV.SIG .Q4H [facility] Rx#: [id number] Zosyn 3.375 GM Premix 3.375 gm 100 / 100 100 / 100 50 / 50 In 50 ml @ 100 mls/hr IV.SIG Q6H [facility] Rx#:[id number] Anesthesia Amount 500 / 500 Output: Estimated Blood Loss 50 / 50 Wound Drainage # 1 Right Upper Abdomen REBECCA Drain Other: # Voids 6 2 Date of Last Bowel Movement 12/11/18 12/11/18 Narrative: GENERAL: Morbidly obese male in no acute distress CARDIOVASCULAR: Normal rate and regular rhythm without murmurs, gallops, or rubs. RESPIRATORY: Good respiratory efforts. Breath sounds equal and clear to auscultation bilaterally. GASTROINTESTINAL: Abdomen is distended, surgical site appear clean. There is a drain in place. Hypoactive bowel sounds. MUSCULOSKELETAL: Extremities without cyanosis, or edema. NEURO: Alert & Oriented x4 to person, place, time, situation. Moves all ext x4 PSYCH: Appropriate mood and affect. Results Labs CBC & Chem 7: 12/15/18 13:27 12/14/18 07:38 Labs: Microbiology 12/12/18 16:32 Blood - Peripheral Aerobic Blood Culture - Preliminary No growth in 3 days 12/12/18 16:32 Blood - Peripheral Anaerobic Blood Culture - Preliminary No growth in 3 days 12/12/18 16:25 Blood - Peripheral Aerobic Blood Culture - Preliminary No growth in 3 days 12/12/18 16:25 Blood - Peripheral Anaerobic Blood Culture - Preliminary No growth in 3 days Assessment and Plan Plan 43-year-old male with sepsis secondary to pancreatitis and acute cholecystitis Sepsis Patient met criteria on admission with leukocytosis, tachycardia, cholecystitis , pancreatitis Blood cultures are negative so far. Continue Zosyn -monitor CBC and temps. -Status post laparoscopic cholecystectomy which revealed a contracted and scarred gallbladder, inflammatory phlegmon right upper quadrant. Patient has a drain in place. General surgery following. Gallstone pancreatitis, acute cholecystitis History of lap band CT of the abdomen indicating gallstones, mild intrahepatic ductal dilatation, acute pancreatitis MRCP and indicating large gallstones, Moderate dilation of the common bile duct and mild dilation of the intrahepatic biliary system without intraluminal filling defects. -GI following, patient is s/p ERCP and stent placement -general surgery following. Patient is status post cholecystectomy as above. renal insufficiency of unknown duration; likely SUGEY Resolved with IV fluid Monitor renal function Hyperglycemia Hemoglobin A1c 5.3 DVT prevention Sequential compression devices, early ambulation Discharge Planning: home when stable and cleared by GI and general surgery. Progress Note: Quality VTE Deep Vein Thrombosis/Pulmonary Embolism Present on Admission: No
[2018-12-15] MEDS: Sod Chloride 0.9% Inj 1,000 ML IV.CONT SCH ×2 (19:08→19:55)
[2018-12-16] MEDS: Piperacil/Tazo 3.375 GM Premix 3.375 GM/50 ML PIGGYBACK IV.SIG SCH ×2 (02:00→10:37)
[2018-12-16] MEDS: Sod Chloride 0.9% Inj 1,000 ML IV.CONT SCH (05:48)
--- NOTE | 2018-12-16 10:01 | P.PNIM ---
Subjective Interval history: Tolerating diet, still with mild abdominal pain, 2/10, no nausea or vomiting. Afebrile. Physical Exam Vital signs: Vital Signs 12/15/18 11:01 12/15/18 11:15 12/15/18 11:29 Temperature 98.8 F Pulse Rate 114 H 109 H Respiratory Rate 18 22 Blood Pressure 143/91 H 170/89 H Pulse Oximetry 90 L 93 L 90 L 12/15/18 11:30 12/15/18 11:45 12/15/18 11:55 Temperature 98.8 F Pulse Rate 108 H 106 H Respiratory Rate 22 16 Blood Pressure 167/86 H 154/76 H Pulse Oximetry 95 95 95 12/15/18 12:00 12/15/18 12:15 12/15/18 12:25 Temperature Pulse Rate 104 H 97 H Respiratory Rate 22 19 Blood Pressure 140/85 139/87 Pulse Oximetry 94 L 94 L 95 12/15/18 12:30 12/15/18 12:45 12/15/18 16:00 Temperature 99.4 F Pulse Rate 100 H 96 H Respiratory Rate 17 20 Blood Pressure 140/75 131/75 Pulse Oximetry 92 L 94 L 95 12/15/18 20:00 12/16/18 00:00 12/16/18 04:00 Temperature 98.5 F 98.9 F 98.3 F Pulse Rate 97 H 81 70 Respiratory Rate 22 18 20 Blood Pressure 134/67 138/73 140/77 Pulse Oximetry 97 98 95 Intake & Output 12/15/18 12/16/18 12/16/18 18:59 06:59 18:59 Intake Total 550 / 550 1150 / 1150 Output Total 1140 / 1140 160 / 160 Balance -590 / -590 990 / 990 Intake: IV 50 / 50 1150 / 1150 NS Inj 1,000 ML @ 100 mls/hr IV 1000 / 1000 .CONT .Q10H [facility] Rx#:[id number] Zosyn 3.375 GM Premix 3.375 gm 50 / 50 150 / 150 In 50 ml @ 100 mls/hr IV.SIG Q6H [facility] Rx#:[id number] Anesthesia Amount 500 / 500 Output: Urine 1000 / 1000 Estimated Blood Loss 50 / 50 Wound Drainage 90 / 90 160 / 160 # 1 Right Upper Abdomen REBECCA 90 / 90 160 / 160 Drain Other: # Voids 3 Narrative: GENERAL: Morbidly obese male in no acute distress CARDIOVASCULAR: Normal rate and regular rhythm without murmurs, gallops, or rubs. RESPIRATORY: Good respiratory efforts. Breath sounds equal and clear to auscultation bilaterally. GASTROINTESTINAL: Abdomen is distended, surgical site appear clean. REBECCA drain in place with scant sanguinous output. MUSCULOSKELETAL: Extremities without cyanosis, or edema. NEURO: Alert & Oriented x4 to person, place, time, situation. Moves all ext x4 PSYCH: Appropriate mood and affect. Results Labs CBC & Chem 7: 12/16/18 09:03 12/16/18 09:03 Labs: Microbiology 12/12/18 16:32 Blood - Peripheral Aerobic Blood Culture - Preliminary No growth in 3 days 12/12/18 16:32 Blood - Peripheral Anaerobic Blood Culture - Preliminary No growth in 3 days 12/12/18 16:25 Blood - Peripheral Aerobic Blood Culture - Preliminary No growth in 3 days 12/12/18 16:25 Blood - Peripheral Anaerobic Blood Culture - Preliminary No growth in 3 days Assessment and Plan Plan 43-year-old male with sepsis secondary to pancreatitis and acute cholecystitis Sepsis Patient met criteria on admission with leukocytosis, tachycardia, cholecystitis , pancreatitis, blood cultures negative. On Zosyn, leukocytosis improved, afebrile. -Status post laparoscopic cholecystectomy which revealed a contracted and scarred gallbladder, inflammatory phlegmon right upper quadrant. Patient has a drain in place. General surgery following. Advance diet per general surgery, will switch Zosyn to oral Levaquin. Gallstone pancreatitis, acute cholecystitis History of lap band CT of the abdomen indicating gallstones, mild intrahepatic ductal dilatation, acute pancreatitis MRCP and indicating large gallstones, Moderate dilation of the common bile duct and mild dilation of the intrahepatic biliary system without intraluminal filling defects. -GI following, patient is s/p ERCP and stent placement, status post cholecystectomy as above. renal insufficiency of unknown duration; likely SUGEY Resolved with IV fluid, tolerating liquid diet, stop IVF. Recheck BMP tomorrow. Hyperglycemia Hemoglobin A1c 5.3 DVT prevention Sequential compression devices, early ambulation Discharge Planning: home when stable and cleared by GI and general surgery. Progress Note: Quality VTE Deep Vein Thrombosis/Pulmonary Embolism Present on Admission: No
[2018-12-16 11:11] LABS: Hematocrit 37.1 % (39.0-51.0); Hemoglobin 12.3 gm/dL (13.0-17.0); Lymph # (Auto) 0.9 th/mm3 (1.0-4.8); Mean Corpuscular HGB Conc 33.1 % (32.0-36.0); Mean Corpuscular Hemoglobin 28.6 pg (27.0-34.0); Mean Corpuscular Volume 86.4 fL (80.0-100.0); Mean Platelet Volume 10.2 fL (7.0-11.0); Mono # (Auto) 0.9 th/mm3 (0.0-0.9); Mono % (Auto) 7.7 % (0.0-8.0); Neut # (Auto) 9.4 th/mm3 (1.8-7.7); Neut % (Auto) 84.3 % (16.0-70.0); Platelet Count 189 th/mm3 (150-450); Red Cell Distribution Width 15.2 % (11.6-17.2); White Blood Count 11.2 th/mm3 (4.0-11.0)
[2018-12-16 11:43] LABS: Alanine Aminotransferase 116 U/L (12-78); Albumin 2.5 g/dL (3.4-5.0); Anion Gap 7 meq/L (5-15); Aspartate Aminotransferase 58 U/L (15-37); Blood Urea Nitrogen 11 mg/dL (7-18); Calcium 7.6 mg/dL (8.5-10.1); Carbon Dioxide 28.8 meq/L (21.0-32.0); Chloride 105 meq/L (98-107); Glomerular Filtration Rate Greater Than 89 mL/min (>89); Glucose,Random 108 mg/dL (74-106); Lipase 94 U/L (73-393); Potassium 3.5 meq/L (3.5-5.1); Sodium 141 meq/L (136-145)
[2018-12-16 11:45] LABS: Alkaline Phosphatase 103 U/L (45-117); Total Protein 6.4 g/dL (6.4-8.2)
--- NOTE | 2018-12-16 15:06 | P.PNGS ---
Subjective Patient reports: feels better, flatus, no bowel movement (Patient still sore postop, mostly around the drain exit site. He has passed flatus, has had no bowel movement. He walked the halls.) Physical Exam Vital signs: Vital Signs 12/15/18 16:00 12/15/18 20:00 12/16/18 00:00 Temperature 99.4 F 98.5 F 98.9 F Pulse Rate 96 H 97 H 81 Respiratory Rate 20 22 18 Blood Pressure 131/75 134/67 138/73 Pulse Oximetry 95 97 98 12/16/18 04:00 12/16/18 08:00 12/16/18 12:00 Temperature 98.3 F 98.1 F 98.3 F Pulse Rate 70 62 73 Respiratory Rate 20 12 14 Blood Pressure 140/77 136/76 131/78 Pulse Oximetry 95 96 96 Intake & Output 12/15/18 12/16/18 12/16/18 18:59 06:59 18:59 Intake Total 550 / 550 1150 / 1150 Output Total 1140 / 1140 160 / 160 Balance -590 / -590 990 / 990 Intake: IV 50 / 50 1150 / 1150 NS Inj 1,000 ML @ 100 mls/hr IV 1000 / 1000 .CONT .Q10H [facility] Rx#:[id number] Zosyn 3.375 GM Premix 3.375 gm 50 / 50 150 / 150 In 50 ml @ 100 mls/hr IV.SIG Q6H [facility] Rx#:[id number] Anesthesia Amount 500 / 500 Output: Urine 1000 / 1000 Estimated Blood Loss 50 / 50 Wound Drainage 90 / 90 160 / 160 # 1 Right Upper Abdomen REBECCA 90 / 90 160 / 160 Drain Other: # Voids 3 Narrative: Laparoscopy incisions healing well been the Steri-Strips. Drain exit site with minimal drainage. Drain primarily with serosanguineous fluid. Drain tubing stripped. Abdomen mildly distended yet soft and overall nontender. Extremities not edematous. Results - Labs 12/16/18 09:03 12/16/18 09:03 Laboratory Results - last 24 hr 12/16/18 12/16/18 09:03 09:03 WBC 11.2 H RBC 4.30 L Hgb 12.3 L Hct 37.1 L MCV 86.4 MCH 28.6 MCHC 33.1 RDW 15.2 Plt Count 189 MPV 10.2 Neut % (Auto) 84.3 H Lymph % (Auto) 8.0 L [place] % (Auto) 7.7 Eos % (Auto) 0.0 Baso % (Auto) 0.0 Neut # (Auto) 9.4 H Lymph # (Auto) 0.9 L [place] # (Auto) 0.9 Eos # (Auto) 0.0 Baso # (Auto) 0.0 WBC Differential . Differential Comment Auto diff final Sodium 141 Potassium 3.5 Chloride 105 Carbon Dioxide 28.8 Anion Gap 7 BUN 11 Creatinine 0.90 Estimated GFR Greater than 89 Random Glucose 108 H Calcium 7.6 L Total Bilirubin 0.8 Direct Bilirubin 0.5 H Indirect Bilirubin 0.3 AST 58 H ALT 116 H Alkaline Phosphatase 103 Total Protein 6.4 Albumin 2.5 L Lipase 94 - Imaging Imaging: ITS Impressions Cholangiopancreatography MRI 12/12/18 00:00 CONCLUSION: 1. Large gallstones. 2. Moderate dilation of the common bile duct and mild dilation of the intrahepatic biliary system without intraluminal filling defects. 3. Mild amount of ascites adjacent to the tail of the pancreas and about the spleen 4. May consider performing hepatobiliary tract scan to evaluate patency of the cystic duct and to evaluate for evidence of functional biliary obstruction.. Hepatobiliary Scan Nuclear Medicine 12/12/18 00:00 CONCLUSION: 1. Delayed uptake and no significant excretion of radiotracer from the hepatic parenchyma has differential considerations of either severe hepatocellular dysfunction or biliary obstruction. There is dilation of the intra and extrahepatic biliary system on CT and MRCP, making biliary obstruction more likely. 2. Cystic duct patency cannot be assessed due to the lack of excretion of radiotracer. Abdomen/Pelvis CT 12/12/18 00:42 CONCLUSION: 1. Gallstones. 2. Mild intra and extra hepatic biliary ductal dilatation 3. Acute pancreatitis Assessment and Plan - Assessment (1) Chronic cholecystitis with calculus Code(s): K80.10 - Calculus of gallbladder with chronic cholecystitis without obstruction Status: Acute (2) Gallstone pancreatitis Code(s): K85.10 - Biliary acute pancreatitis without necrosis or infection Status: Acute - Plan Postop day 1 status post laparoscopic cholecystectomy. Cholecystitis severe. History of gallstone pancreatitis. Patient is doing well postoperatively. He does not feel ready to start a regular diet at this time, will order for tomorrow morning. Likely can remove drain prior to discharge. Hopeful for discharge tomorrow.
[2018-12-16] MEDS ORDERED: Melatonin 5 MG Tablet PO ONE (20:20)
--- NOTE | 2018-12-17 08:48 | P.PNGS ---
Subjective Patient reports: feels better, still having pain, pain is less, tolerating liquids well, flatus, no bowel movement, afebrile Physical Exam Vital signs: Vital Signs 12/16/18 11:10 12/16/18 12:00 12/16/18 16:00 Temperature 98.3 F 98.2 F Pulse Rate 68 61 Respiratory Rate 15 14 14 Blood Pressure 131/78 145/79 H Pulse Oximetry 96 96 12/16/18 17:43 12/16/18 20:00 12/17/18 00:00 Temperature 98.4 F 97.5 F L Pulse Rate 85 80 Respiratory Rate 14 20 18 Blood Pressure 144/81 H 99/57 L Pulse Oximetry 95 94 L 12/17/18 04:00 12/17/18 07:30 Temperature 98.3 F Pulse Rate 93 H Respiratory Rate 20 18 Blood Pressure 138/77 Pulse Oximetry 97 Intake & Output 12/16/18 12/17/18 12/17/18 18:59 06:59 18:59 Intake Total 1530 / 1530 Output Total 55 / 55 100 / 100 275 / 275 Balance 1475 / 1475 -100 / -100 -275 / -275 Weight 119.5 kg Intake: IV 1050 / 1050 NS Inj 1,000 ML @ 100 mls/hr IV 1000 / 1000 .CONT .Q10H [facility] Rx#:[id number] Oral 480 / 480 Output: Urine 275 / 275 Wound Drainage 55 / 55 100 / 100 # 1 Right Upper Abdomen REBECCA 55 / 55 100 / 100 Drain Other: # Voids 1 3 Date of Last Bowel Movement 12/11/18 - Routine Abdominal Exam Present: soft, normoactive bowel sounds, tenderness, distended, surgical scars, wound Results - Labs 12/16/18 09:03 12/16/18 09:03 Laboratory Results - last 24 hr 12/16/18 12/16/18 09:03 09:03 WBC 11.2 H RBC 4.30 L Hgb 12.3 L Hct 37.1 L MCV 86.4 MCH 28.6 MCHC 33.1 RDW 15.2 Plt Count 189 MPV 10.2 Neut % (Auto) 84.3 H Lymph % (Auto) 8.0 L [place] % (Auto) 7.7 Eos % (Auto) 0.0 Baso % (Auto) 0.0 Neut # (Auto) 9.4 H Lymph # (Auto) 0.9 L [place] # (Auto) 0.9 Eos # (Auto) 0.0 Baso # (Auto) 0.0 WBC Differential . Differential Comment Auto diff final Sodium 141 Potassium 3.5 Chloride 105 Carbon Dioxide 28.8 Anion Gap 7 BUN 11 Creatinine 0.90 Estimated GFR Greater than 89 Random Glucose 108 H Calcium 7.6 L Total Bilirubin 0.8 Direct Bilirubin 0.5 H Indirect Bilirubin 0.3 AST 58 H ALT 116 H Alkaline Phosphatase 103 Total Protein 6.4 Albumin 2.5 L Lipase 94 - Imaging Imaging: ITS Impressions Cholangiopancreatography MRI 12/12/18 00:00 CONCLUSION: 1. Large gallstones. 2. Moderate dilation of the common bile duct and mild dilation of the intrahepatic biliary system without intraluminal filling defects. 3. Mild amount of ascites adjacent to the tail of the pancreas and about the spleen 4. May consider performing hepatobiliary tract scan to evaluate patency of the cystic duct and to evaluate for evidence of functional biliary obstruction.. Hepatobiliary Scan Nuclear Medicine 12/12/18 00:00 CONCLUSION: 1. Delayed uptake and no significant excretion of radiotracer from the hepatic parenchyma has differential considerations of either severe hepatocellular dysfunction or biliary obstruction. There is dilation of the intra and extrahepatic biliary system on CT and MRCP, making biliary obstruction more likely. 2. Cystic duct patency cannot be assessed due to the lack of excretion of radiotracer. Abdomen/Pelvis CT 12/12/18 00:42 CONCLUSION: 1. Gallstones. 2. Mild intra and extra hepatic biliary ductal dilatation 3. Acute pancreatitis Assessment and Plan - Assessment (1) Chronic cholecystitis with calculus Code(s): K80.10 - Calculus of gallbladder with chronic cholecystitis without obstruction Status: Acute (2) Gallstone pancreatitis Code(s): K85.10 - Biliary acute pancreatitis without necrosis or infection Status: Acute - Plan Doing well. Slow recovery due to pancreatitis and cholecystitis Drain with serous fluid, no bile Will likely need to stay one more day for pain control, lives alone. Will likely remove drain Tuesday before DC or later this week in office Ok to shower.
--- NOTE | 2018-12-17 08:49 | P.PNIM ---
Subjective Interval history: For abdominal pain Blood pressure stable, on 2 L of oxygen. Not tolerating diet, surgery would like to keep 1 more day. Abdominal pain still high, still a lot of output from REBECCA drain. Physical Exam Vital signs: Vital Signs 12/16/18 11:10 12/16/18 12:00 12/16/18 16:00 Temperature 98.3 F 98.2 F Pulse Rate 68 61 Respiratory Rate 15 14 14 Blood Pressure 131/78 145/79 H Pulse Oximetry 96 96 12/16/18 17:43 12/16/18 20:00 12/17/18 00:00 Temperature 98.4 F 97.5 F L Pulse Rate 85 80 Respiratory Rate 14 20 18 Blood Pressure 144/81 H 99/57 L Pulse Oximetry 95 94 L 12/17/18 04:00 12/17/18 07:30 Temperature 98.3 F Pulse Rate 93 H Respiratory Rate 20 18 Blood Pressure 138/77 Pulse Oximetry 97 Intake & Output 12/16/18 12/17/18 12/17/18 18:59 06:59 18:59 Intake Total 1530 / 1530 Output Total 55 / 55 100 / 100 275 / 275 Balance 1475 / 1475 -100 / -100 -275 / -275 Weight 119.5 kg Intake: IV 1050 / 1050 NS Inj 1,000 ML @ 100 mls/hr IV 1000 / 1000 .CONT .Q10H LAENA Rx#:[id number] Oral 480 / 480 Output: Urine 275 / 275 Wound Drainage 55 / 55 100 / 100 # 1 Right Upper Abdomen REBECCA 55 / 55 100 / 100 Drain Other: # Voids 1 3 Date of Last Bowel Movement 12/11/18 Narrative: GENERAL: Morbidly obese male in no acute distress CARDIOVASCULAR: Normal rate and regular rhythm without murmurs, gallops, or rubs. RESPIRATORY: Good respiratory efforts. Breath sounds equal and clear to auscultation bilaterally. GASTROINTESTINAL: Abdomen is distended, surgical site appear clean. REBECCA drain in place with scant sanguinous output. MUSCULOSKELETAL: Extremities without cyanosis, or edema. NEURO: Alert & Oriented x4 to person, place, time, situation. Moves all ext x4 PSYCH: Appropriate mood and affect. Results Labs CBC & Chem 7: 12/16/18 09:03 12/17/18 10:41 Labs: Microbiology 12/12/18 16:32 Blood - Peripheral Aerobic Blood Culture - Preliminary No growth in 4 days 12/12/18 16:32 Blood - Peripheral Anaerobic Blood Culture - Preliminary No growth in 4 days 12/12/18 16:25 Blood - Peripheral Aerobic Blood Culture - Preliminary No growth in 4 days 12/12/18 16:25 Blood - Peripheral Anaerobic Blood Culture - Preliminary No growth in 4 days Assessment and Plan (1) Chronic cholecystitis with calculus: Code(s): K80.10 - Calculus of gallbladder with chronic cholecystitis without obstruction Status: Acute (2) Gallstone pancreatitis: Code(s): K85.10 - Biliary acute pancreatitis without necrosis or infection Status: Acute Plan 43-year-old male with sepsis secondary to pancreatitis and acute cholecystitis Sepsis Patient met criteria on admission with leukocytosis, tachycardia, cholecystitis , pancreatitis, blood cultures negative. On Zosyn, leukocytosis improved, afebrile. -Status post laparoscopic cholecystectomy which revealed a contracted and scarred gallbladder, inflammatory phlegmon right upper quadrant. Patient has a drain in place, possible removal prior to discharge. General surgery following. Advance diet per general surgery, keep REBECCA drain on discharge, possible discharge tomorrow. Continue oral Levaquin. Gallstone pancreatitis, acute cholecystitis History of lap band CT of the abdomen indicating gallstones, mild intrahepatic ductal dilatation, acute pancreatitis MRCP and indicating large gallstones, Moderate dilation of the common bile duct and mild dilation of the intrahepatic biliary system without intraluminal filling defects. -GI following, patient is s/p ERCP and stent placement, status post cholecystectomy as above. renal insufficiency of unknown duration; likely SUGEY Resolved with IV fluid, tolerating liquid diet, stop IVF. Resolved. Hyperglycemia Hemoglobin A1c 5.3 DVT prevention Sequential compression devices, early ambulation Discharge Planning: home when stable and cleared by general surgery, when tolerating diet. Progress Note: Quality VTE Deep Vein Thrombosis/Pulmonary Embolism Present on Admission: No
[2018-12-17 12:20] LABS: Anion Gap 4 meq/L (5-15); Blood Urea Nitrogen 7 mg/dL (7-18); Calcium 7.8 mg/dL (8.5-10.1); Carbon Dioxide 30.3 meq/L (21.0-32.0); Chloride 104 meq/L (98-107); Glomerular Filtration Rate Greater Than 89 mL/min (>89); Glucose,Random 97 mg/dL (74-106); Potassium 3.5 meq/L (3.5-5.1); Sodium 138 meq/L (136-145)
[2018-12-18] MEDS: HYDROmorphone PF Inj 1 MG/ML Ampul IV.PUSH PRN ×2 (12:45→20:55)
--- NOTE | 2018-12-18 14:25 | P.PNIM ---
Subjective Interval history: No overnight events. Afebrile. Ate breakfast this morning, not nauseated but still with abdominal pain. Discussed with surgery, will need to keep 1 more day. Physical Exam Vital signs: Vital Signs 12/17/18 15:20 12/17/18 20:00 12/18/18 00:00 Temperature 98.7 F 100.1 F H 98.9 F Pulse Rate 82 93 H 79 Respiratory Rate 20 18 18 Blood Pressure 127/66 134/65 123/70 Pulse Oximetry 96 97 96 12/18/18 04:00 12/18/18 08:00 12/18/18 12:00 Temperature 98.5 F 99.3 F 99.2 F Pulse Rate 74 91 H 69 Respiratory Rate 18 16 16 Blood Pressure 130/77 145/80 H 136/74 Pulse Oximetry 96 98 97 Intake & Output 12/17/18 12/18/18 12/18/18 18:59 06:59 18:59 Output Total 275 / 275 100 / 100 Balance -275 / -275 -100 / -100 Output: Urine 275 / 275 Wound Drainage 100 / 100 # 1 Right Upper Abdomen REBECCA 100 / 100 Drain Narrative: GENERAL: Morbidly obese male in no acute distress CARDIOVASCULAR: Normal rate and regular rhythm without murmurs, gallops, or rubs. RESPIRATORY: Good respiratory efforts. Breath sounds equal and clear to auscultation bilaterally. GASTROINTESTINAL: Abdomen is distended, surgical site appear clean. REBECCA drain in place with scant sanguinous output. MUSCULOSKELETAL: Extremities without cyanosis, or edema. NEURO: Alert & Oriented x4 to person, place, time, situation. Moves all ext x4 PSYCH: Appropriate mood and affect. Results Labs CBC & Chem 7: 12/16/18 09:03 12/17/18 10:41 Labs: Microbiology 12/12/18 16:32 Blood - Peripheral Aerobic Blood Culture - Final No growth in 5 days 12/12/18 16:32 Blood - Peripheral Anaerobic Blood Culture - Final No growth in 5 days 12/12/18 16:25 Blood - Peripheral Aerobic Blood Culture - Final No growth in 5 days 12/12/18 16:25 Blood - Peripheral Anaerobic Blood Culture - Final No growth in 5 days Assessment and Plan (1) Chronic cholecystitis with calculus: Code(s): K80.10 - Calculus of gallbladder with chronic cholecystitis without obstruction Status: Acute (2) Gallstone pancreatitis: Code(s): K85.10 - Biliary acute pancreatitis without necrosis or infection Status: Acute Plan 43-year-old male with sepsis secondary to pancreatitis and acute cholecystitis Sepsis Patient met criteria on admission with leukocytosis, tachycardia, cholecystitis , pancreatitis, blood cultures negative. On Zosyn, leukocytosis improved, afebrile. -Status post laparoscopic cholecystectomy which revealed a contracted and scarred gallbladder, inflammatory phlegmon right upper quadrant. Patient has a drain in place, possible removal prior to discharge. General surgery following. On regular diet per general surgery, keep REBECCA drain on discharge, possible discharge tomorrow per general surgery. Status post antibiotics, recheck CBC tomorrow. Gallstone pancreatitis, acute cholecystitis History of lap band CT of the abdomen indicating gallstones, mild intrahepatic ductal dilatation, acute pancreatitis MRCP and indicating large gallstones, Moderate dilation of the common bile duct and mild dilation of the intrahepatic biliary system without intraluminal filling defects. -GI following, patient is s/p ERCP and stent placement, status post cholecystectomy as above. renal insufficiency of unknown duration; likely SUGEY Resolved with IV fluid, tolerating liquid diet, stop IVF. Resolved. Hyperglycemia Hemoglobin A1c 5.3 DVT prevention Sequential compression devices, early ambulation Discharge Planning: home when stable and cleared by general surgery, when tolerating diet. Progress Note: Quality VTE Deep Vein Thrombosis/Pulmonary Embolism Present on Admission: No
--- NOTE | 2018-12-18 14:32 | P.PNGS ---
Subjective Interval history: With abdominal pain and nausea Physical Exam Vital signs: Vital Signs 12/17/18 15:20 12/17/18 20:00 12/18/18 00:00 Temperature 98.7 F 100.1 F H 98.9 F Pulse Rate 82 93 H 79 Respiratory Rate 20 18 18 Blood Pressure 127/66 134/65 123/70 Pulse Oximetry 96 97 96 12/18/18 04:00 12/18/18 08:00 12/18/18 12:00 Temperature 98.5 F 99.3 F 99.2 F Pulse Rate 74 91 H 69 Respiratory Rate 18 16 16 Blood Pressure 130/77 145/80 H 136/74 Pulse Oximetry 96 98 97 Intake & Output 12/17/18 12/18/18 12/18/18 18:59 06:59 18:59 Output Total 275 / 275 100 / 100 Balance -275 / -275 -100 / -100 Output: Urine 275 / 275 Wound Drainage 100 / 100 # 1 Right Upper Abdomen REBECCA 100 / 100 Drain Narrative: Alert and awake Abd: soft; obese; non distended; incision sites c/d/i REBECCA with serous drainage Results - Labs 12/16/18 09:03 12/17/18 10:41 - Imaging Imaging: ITS Impressions Cholangiopancreatography MRI 12/12/18 00:00 CONCLUSION: 1. Large gallstones. 2. Moderate dilation of the common bile duct and mild dilation of the intrahepatic biliary system without intraluminal filling defects. 3. Mild amount of ascites adjacent to the tail of the pancreas and about the spleen 4. May consider performing hepatobiliary tract scan to evaluate patency of the cystic duct and to evaluate for evidence of functional biliary obstruction.. Hepatobiliary Scan Nuclear Medicine 12/12/18 00:00 CONCLUSION: 1. Delayed uptake and no significant excretion of radiotracer from the hepatic parenchyma has differential considerations of either severe hepatocellular dysfunction or biliary obstruction. There is dilation of the intra and extrahepatic biliary system on CT and MRCP, making biliary obstruction more likely. 2. Cystic duct patency cannot be assessed due to the lack of excretion of radiotracer. Abdomen/Pelvis CT 12/12/18 00:42 CONCLUSION: 1. Gallstones. 2. Mild intra and extra hepatic biliary ductal dilatation 3. Acute pancreatitis Assessment and Plan - Assessment (1) Chronic cholecystitis with calculus Code(s): K80.10 - Calculus of gallbladder with chronic cholecystitis without obstruction Status: Acute (2) Gallstone pancreatitis Code(s): K85.10 - Biliary acute pancreatitis without necrosis or infection Status: Acute - Plan 43 year old male with GS pancreatitis -POD3 lap kevin; drain placement -Diet as tolerated -Hold off on DC today as patient has nausea/vomiting -Will check back tomorrow and likely DC REBECCA prior to DC
[2018-12-18] MEDS ORDERED: Zolpidem Tartrate 5 MG Tablet PO PRN (22:00)
[2018-12-19] MEDS: HYDROmorphone PF Inj 1 MG/ML Ampul IV.PUSH PRN (03:08)
--- NOTE | 2018-12-19 08:35 | P.PNGS ---
Subjective Interval history: Feeling better today No issues overnight Wants to go home Physical Exam Vital signs: Vital Signs 12/18/18 12:00 12/18/18 16:00 12/18/18 20:00 Temperature 99.2 F 99.1 F 100.0 F H Pulse Rate 69 64 81 Respiratory Rate 16 16 20 Blood Pressure 136/74 130/71 124/69 Pulse Oximetry 97 97 97 12/19/18 00:00 12/19/18 04:00 Temperature 99.3 F 99.3 F Pulse Rate 83 83 Respiratory Rate 18 20 Blood Pressure 128/77 113/65 Pulse Oximetry 95 95 Intake & Output 12/18/18 12/19/18 12/19/18 18:59 06:59 18:59 Intake Total 800 / 800 Output Total 50 / 50 Balance 800 / 800 -50 / -50 Weight 123.9 kg Intake: Oral 800 / 800 Output: Wound Drainage 50 / 50 # 1 Right Upper Abdomen REBECCA 50 / 50 Drain Other: # Voids 8 4 Date of Last Bowel Movement 12/18/18 # Bowel Movements 1 2 Narrative: Alert and awake Abd: soft; minimally tender; REBECCA removed at bedside Results - Labs 12/16/18 09:03 12/17/18 10:41 - Imaging Imaging: ITS Impressions Cholangiopancreatography MRI 12/12/18 00:00 CONCLUSION: 1. Large gallstones. 2. Moderate dilation of the common bile duct and mild dilation of the intrahepatic biliary system without intraluminal filling defects. 3. Mild amount of ascites adjacent to the tail of the pancreas and about the spleen 4. May consider performing hepatobiliary tract scan to evaluate patency of the cystic duct and to evaluate for evidence of functional biliary obstruction.. Hepatobiliary Scan Nuclear Medicine 12/12/18 00:00 CONCLUSION: 1. Delayed uptake and no significant excretion of radiotracer from the hepatic parenchyma has differential considerations of either severe hepatocellular dysfunction or biliary obstruction. There is dilation of the intra and extrahepatic biliary system on CT and MRCP, making biliary obstruction more likely. 2. Cystic duct patency cannot be assessed due to the lack of excretion of radiotracer. Abdomen/Pelvis CT 12/12/18 00:42 CONCLUSION: 1. Gallstones. 2. Mild intra and extra hepatic biliary ductal dilatation 3. Acute pancreatitis Assessment and Plan - Assessment (1) Chronic cholecystitis with calculus Code(s): K80.10 - Calculus of gallbladder with chronic cholecystitis without obstruction Status: Acute (2) Gallstone pancreatitis Code(s): K85.10 - Biliary acute pancreatitis without necrosis or infection Status: Acute - Plan 43 year old male with GS pancreatitis -POD4 lap kevin; drain placement -Pain improved -+BM -GS clear for DC -Follow up TuesdayDec 26 at 10:10AM
[2018-12-19 09:06] LABS: Baso % (Auto) 0.1 % (0.0-2.0); Eos # (Auto) 0.2 th/mm3 (0.0-0.4); Eos % (Auto) 0.9 % (0.0-4.0); Hemoglobin 13.4 gm/dL (13.0-17.0); Lymph % (Auto) 5.7 % (9.0-44.0); Mean Corpuscular HGB Conc 32.7 % (32.0-36.0); Mean Corpuscular Hemoglobin 27.8 pg (27.0-34.0); Mean Corpuscular Volume 84.9 fL (80.0-100.0); Mean Platelet Volume 9.3 fL (7.0-11.0); Mono # (Auto) 1.2 th/mm3 (0.0-0.9); Mono % (Auto) 6.8 % (0.0-8.0); Neut # (Auto) 15.8 th/mm3 (1.8-7.7); Neut % (Auto) 86.5 % (16.0-70.0); Platelet Count 268 th/mm3 (150-450); Red Blood Count 4.82 mil/mm3 (4.50-5.90); Red Cell Distribution Width 14.5 % (11.6-17.2); White Blood Count 18.3 th/mm3 (4.0-11.0)
[2018-12-19 09:37] VITALS: BP 137/77; PULSE 88; RESP 18; TEMP 99.1; O2SAT 96
[2018-12-19 09:38] LABS: Anion Gap 9 meq/L (5-15); Blood Urea Nitrogen 9 mg/dL (7-18); Chloride 101 meq/L (98-107); Glomerular Filtration Rate Greater Than 89 mL/min (>89); Glucose,Random 83 mg/dL (74-106); Potassium 3.4 meq/L (3.5-5.1); Sodium 137 meq/L (136-145)
[2018-12-19 10:14] LABS: Lymphocytes 1 % (9-44); Monocytes 1 % (0-8); Platelet Estimate Normal (Normal); Toxic Granulation 2+
--- NOTE | 2018-12-19 10:24 | P.DS ---
DS: Providers Date of admission: 12/12/18 01:42 Primary care physician: Josh Graham MD Consults: 12/12/18 01:42 Consult to Gastroenterology Routine Consulting Provider: Nancy Rhodes Reason for Consultation: gallstone pancreatitis Notified:: Service Spoke with:: Nathalia Date Notified:: 12/12/18 Time Notified:: 01:51 Comments:: Ordering Provider: VENU 12/12/18 18:23 Consult to General Surgery Routine Consulting Provider: Dony Mannnig Reason for Consultation: gallstone pancreatitis history of lapband may need fluid removed prior to [email or web address].[email or web address] , pt to be transferred to main Notified:: Service Spoke with:: asif Date Notified:: 12/12/18 Time Notified:: 18:30 Ordering Provider: MERY 12/13/18 12:50 Consult to General Surgery Routine Consulting Provider: Ahsan Velasquez Preferred Snowmobile Mechanic:: Ahsan Velasquez Patient known to:: Ahsan Velasquez Reason for Consultation: Bariatric surgery consultation for evaluation of lap band Notified:: Service Spoke with:: ESAU Date Notified:: 12/13/18 Time Notified:: 12:58 Ordering Provider: JOANN Brief History from admission: 43-year-old male with history of asthma, sleep apnea who presented to hospital for evaluation of abdominal pain. Patient states that he has been experiencing abdominal pain for at least 2 weeks now. He indicates that it was a mild pain throughout his abdomen which over the last 2 days has progressively gotten worse to where it got up to 8/10 on a pain scale. Patient indicates that the pain was worse at work which she related to stress. As the pain was getting worse he came home from work yesterday and when she got home he had onset of nausea and vomiting. He states that he only vomited up liquids because over the last 24 hours he had only been drinking fluids. Last solid meal was on Tuesday. Patient denies any hematemesis, diarrhea, constipation, hematochezia. Patient denies any alcohol use, previous history of pancreatitis. Patient had workup done and found to have significant hyperbilirubinemia, liver enzyme elevation, pancreatic enzyme elevation. It was recommended by ER physician the patient be admitted for gallstone pancreatitis. DS: Diagnosis Discharge Diagnosis (1) Chronic cholecystitis with calculus: Status: Acute (2) Gallstone pancreatitis: Status: Acute DS: Summary This is a 43-year-old male with sepsis secondary to pancreatitis and acute cholecystitis. Patient met criteria on admission with leukocytosis, tachycardia , cholecystitis, pancreatitis, blood cultures negative. Zosyn empirically started. General surgery and gastroenterology were consulted. CT of the abdomen indicating gallstones, mild intrahepatic ductal dilatation, acute pancreatitis. MRCP and indicating large gallstones, Moderate dilation of the common bile duct and mild dilation of the intrahepatic biliary system without intraluminal filling defects. Patient status post ERCP with stent placement. Patient went for laparoscopic cholecystectomy which revealed a contracted and scarred gallbladder, inflammatory phlegmon right upper quadrant. After surgery , diet was advanced, REBECCA drain was eventually removed. Patient was discharged after a successful bowel movement and tolerating diet. Patient also had acute renal failure on admission which resolved with volume resuscitation. Time Spent with Patient Total time spent providing and/or coordinating discharge services: Greater than 30 minutes Quality: VTE Deep Vein Thrombosis/Pulmonary Embolism Present on Admission: No Exam Narrative Exam Narrative: S> tolerated lunch and dinner, is about to eat breakfast. No nausea or vomiting. REBECCA drain removed. No abdominal pain, had a bowel movement yesterday, still passing gas O> Narrative: GENERAL: Morbidly obese male in no acute distress CARDIOVASCULAR: Normal rate and regular rhythm without murmurs, gallops, or rubs. RESPIRATORY: Good respiratory efforts. Breath sounds equal and clear to auscultation bilaterally. GASTROINTESTINAL: Abdomen is distended, surgical site appear clean. MUSCULOSKELETAL: Extremities without cyanosis, or edema. NEURO: Alert & Oriented x4 to person, place, time, situation. Moves all ext x4 PSYCH: Appropriate mood and affect. Results Completed studies during hospitalization: Pending at discharge 12/15/18 12:25 Surgical [PTH] Routine Labs on day of discharge: Labs from last 24 hours 12/19/18 12/19/18 07:36 07:36 WBC 18.3 H RBC 4.82 Hgb 13.4 Hct 41.0 MCV 84.9 MCH 27.8 MCHC 32.7 RDW 14.5 Plt Count 268 D MPV 9.3 Prelim Diff (Auto) Slide review pending Neut % (Auto) 86.5 H Lymph % (Auto) 5.7 L [place] % (Auto) 6.8 Eos % (Auto) 0.9 Baso % (Auto) 0.1 Neut # (Auto) 15.8 H Lymph # (Auto) 1.0 [place] # (Auto) 1.2 H Eos # (Auto) 0.2 Baso # (Auto) 0.0 WBC Differential Manual diff final Seg Neuts % (Manual) 78 H Band Neuts % (Manual) 20 H Lymphocytes % (Manual) 1 L Monocytes % (Manual) 1 Abs Neuts (Manual) 17.9 H Differential Comment . Toxic Granulation 2+ H Platelet Estimate Normal Platelet Morphology Enlarged H Sodium 137 Potassium 3.4 L Chloride 101 Carbon Dioxide 27.0 Anion Gap 9 BUN 9 Creatinine 0.91 Estimated GFR Greater than 89 Random Glucose 83 Calcium 8.0 L Impressions ITS Impressions Cholangiopancreatography MRI 12/12/18 00:00 CONCLUSION: 1. Large gallstones. 2. Moderate dilation of the common bile duct and mild dilation of the intrahepatic biliary system without intraluminal filling defects. 3. Mild amount of ascites adjacent to the tail of the pancreas and about the spleen 4. May consider performing hepatobiliary tract scan to evaluate patency of the cystic duct and to evaluate for evidence of functional biliary obstruction.. Hepatobiliary Scan Nuclear Medicine 12/12/18 00:00 CONCLUSION: 1. Delayed uptake and no significant excretion of radiotracer from the hepatic parenchyma has differential considerations of either severe hepatocellular dysfunction or biliary obstruction. There is dilation of the intra and extrahepatic biliary system on CT and MRCP, making biliary obstruction more likely. 2. Cystic duct patency cannot be assessed due to the lack of excretion of radiotracer. Abdomen/Pelvis CT 12/12/18 00:42 CONCLUSION: 1. Gallstones. 2. Mild intra and extra hepatic biliary ductal dilatation 3. Acute pancreatitis Discharge Plan Discharge Disposition Patient Disposition: Discharge Home Discharge Condition Condition: Stable Discharge Order Discharge Orders: Discharge Order (Routine); Ordered 12/19/18 Ordered By: Sofya Jensen Discharge Details Anticipated Discharge Date: 12/19/18 Physicians Team ED Provider: Brandon Silveira Primary Care Provider: Josh Graham Attending Provider: Sofya Jensen Other Providers: Nancy Rhodes ; Dony Manning ; Ahsan Velasquez Rxs /Orders / Referrals /Forms Prescriptions: New hydrocodone-acetaminophen [[place]] 5-325 mg tablet 1 tab PO Q6H PRN (Reason: pain) Qty: 15 RF: 0 Continue albuterol sulfate 90 mcg/actuation Hfa Aerosol Inhaler 2 puff INHALATION Q6H PRN (Reason: Shortness Of Breath Or Wheezing) RF: 0 Referrals: Josh Graham MD [Primary Care Provider] - See Instructions Srinivasa Garces MD [Physician] - See Instructions (Appt set for TuesdayDec 26 at 10:10 AM ) Discharge Instructions Patient Printed Instructions: ERCP (Endoscopic Retrograde Cholangiopancreatography) (GEN) Status ED Status: Left Department
== END 2018-12-19 11:38 | disposition home or self-care (01) | DRG 853 ==
LOC: PHED 23:11 → PHEDA 12-12 01:42 → PH3 12-12 02:45 → H7ONC 12-13 09:27
PROVIDERS: ADMIT Hospitalist; ATTEND Hospitalist
DX: J45.909 Unspecified asthma, uncomplicated; A41.9 Sepsis, unspecified organism; Z98.84 Bariatric surgery status; R18.8 Other ascites; E66.01 Morbid (severe) obesity due to excess calories; K80.67 Calculus of gallbladder and bile duct with acute and chronic cholecystitis with obstruction; Z80.42 Family history of malignant neoplasm of prostate; K85.10 Biliary acute pancreatitis without necrosis or infection; G47.30 Sleep apnea, unspecified; N17.9 Acute kidney failure, unspecified; E86.0 Dehydration; Z68.39 Body mass index [BMI] 39.0-39.9, adult
CPT/HCPCS: 74177; 74181; 74330; 76377; 76937; 78226; 80048; 80053; 80076; 81001; 82248; 83036; 83690; 83735; 84478; 85025; 85610; 85730; 87040; 88304; 90761; 90774; 90775; 96361; 96374; 96375; 99285; A4646; A9513; A9537; C1097; C1769; C8952; J0330; J1100; J1170; J1610; J2250; J2270; J2370; J2405; J2543; J2704; J2710; J3010; J7030; J7120; Q9950; Q9965; Q9967